=== PATIENT | male | born 1940 | race Caucasian/White ===

== ENCOUNTER 2020-10-24 09:17 | Outpatient (RCR) | payer MEDICARE, SELFPAY | END 2020-10-24 23:59 | LOC: IMMUN 09:17 | PROVIDERS: Referring Provider Family Medicine; Visit Provider Family Medicine | DX: Z23 Encounter for immunization (principal) | CPT/HCPCS: 0011A; 0012A ==

== ENCOUNTER 2022-09-02 16:34 | Emergency (ER) | payer MEDICARE, MEDICAID, SELFPAY ==
[2022-09-02 16:35] VITALS: BP 134/63; PULSE 66; RESP 18; TEMP 36.4; O2SAT 98; BMI 25.1
--- NOTE | 2022-09-02 16:59 | CT_ITS ---
STUDY: CT Abdomen And Pelvis W/ Contrast Injection 09/02/2022 6:05 PM REASON FOR EXAM: Male, 82 years old. Abdominal pain abd pain Individualized dose optimization techniques were used for this CT. COMPARISON: None. TECHNIQUE: CT Abdomen And Pelvis W/ Contrast Injection IV 100mL [id number] FINDINGS: There are atherosclerotic calcifications of visualized coronary arteries. Multiple median sternotomy wires are noted consistent for cardiac surgery. TAVR. Normal liver. Normal gallbladder and extrahepatic biliary system. Normal spleen. Normal pancreas. Normal bilateral adrenal glands. Non obstructive 2 mm right renal parenchymal stones. There are hypodensities in the left kidney. These are consistent for cysts. No follow up required. There are hypodensities in the right kidney. These are consistent for cysts. No follow up required. There is a small hiatal hernia. Small bowel anastomosis noted. Stool throughout the colon. There is non-visualization of the appendix. There are calcifications of the abdominal aorta. This is consistent for atherosclerotic disease. There is NO abdominal aortic aneurysm. Vascular workup can be obtained based on clinical correlation. Normal inferior vena cava. Subcentimeter mesenteric lymph nodes. 31mm calcified mesenteric mass in the mid mesentry. 21 mm calcified mesenteric mass in the right upper quadrant mesentry. 15mm and 10 mm calcified mesenteric mass in the left lower quadrant mesentry. Normal urinary bladder. There is a left-sided inguinal hernia containing adipose tissue. There are diffuse degenerative changes of the visualized lumbar spine. CT/Abdomen/Pelvis W IV Cont ONLY IMPRESSION: (NOT LISTED IN ORDER OF SIGNIFICANCE) Constipation. Multiple calcified mesenteric masses. The differential includes: sclerosing mesenteritis and Mesenteric carcinoid tumor. Non obstructive 1 to 2 mm right renal parenchymal stones. Other findings as above. Electronically Signed: Dawit Chavarria MD at 18:11 EST ,
--- NOTE | 2022-09-02 17:00 | EDS_ITS ---
HPI HPI - GI History of Present Illness Chief Complaint: Abd Pain Informant: patient and spouse/S.O. Abdominal Pain/Flank Pain Onset: Days Context: Gradual Onset Timing: Continuous Quality: Cramping Location: Diffuse Current Severity: Mild Maximum Severity: Mild Worsened by: Nothing Relieved by: Nothing Nausea/Vomiting/Emesis GI Symptom: Negative for Nausea or Vomiting Diarrhea/Melena/Hematochezia GI Symptom: Negative for Diarrhea, Melena or Hematochezia Associated Symptoms Associated Symptoms: Negative for Dysuria, Frequency or Hematuria Narrative Narrative: 82-year-old male history of dementia, Parkinson's disease, diabetes, 5 way bypass secondary coronary disease and prior bowel obstructions. Years ago. Recently has had constipation with limited bowel movements. Was seen at another facility. Given an enema. Recently at the end of July he was placed in a local extended care facility. is concerned he has developed a recurrent bowel obstruction. He has had no fever. Only mild diffuse crampy discomfort. No vomiting. No melena. No dysuria. He is eating and drinking well Prior similar symptoms: Yes Recent Illness/Hospitalization: Yes PFSH PFSH Medical History (Updated 09/02/22 @ 18:[address] Jori Lancaster MD) Anxiety Coronary artery disease Depression Diabetes Hypertension Myocardial infarct Allergy/AdvReac Type Severity Reaction Status Date / Time donepezil [From Aricept] Allergy Other Verified 09/02/22 16:39 lorazepam [From Ativan] Allergy Other Verified 09/02/22 16:39 Surgical History (Updated 09/02/22 @ 17:06 by Moises Durham) Heart valve replaced History of bowel resection Hx of CABG Social History Smoking Status: Never smoker ROS ROS ED ROS Narrative Abdominal discomfort. Constipation. Review of Systems ROS Unobtainable: Denies due to encephalopathy Constitutional Constitutional ED: Denies chills or fever(s) ENT ENT ED: Denies ear pain Cardiovascular Cardiovascular: Denies chest pain Respiratory/Chest Respiratory/Chest: Denies cough or dyspnea Gastrointestinal Gastrointestinal: Reports abdominal pain and constipation; Denies diarrhea, qasim harris, nausea or vomiting Genitourinary Genitourinary ED: Denies dysuria or hematuria Musculoskeletal Musculoskeletal: Denies arthralgias Integumentary Denies abscess Neurologic Neurologic: Denies headache(s) Psychiatric Psychiatric: Denies anxiety Endocrine Endocrinology: Denies polydipsia Hematologic/Lymphatic Hematologic/Lymphatic: Denies easy bleeding Allergic/Immunologic Allergic/Immunologic ED: Denies mouth swelling or tongue swelling EXAM Physical Exam Narrative Exam Narrative: 82-year-old male no acute distress. Vital signs stable afebrile. at bedside. H EENT exam unremarkable. Moist mucous membranes. Neck nontender no lymphadenopathy. Lungs clear. Heart regular rhythm rate about 65 no murmur. Chest wall nontender. Abdomen soft. Minimally distended. Positive bowel sounds. Well-healed midline surgical incision from the past. No hernia or mass. No peritoneal signs. Very mild nonlocalizing tenderness. External exam unremarkable. Palpable femoral pulse. Moving all 4 extremities. Nontender no edema. Neurologically is awake and alert. Const Vital Signs: 09/02/22 16:35 Temperature 97.5 F L Temperature Source Temporal Pulse Rate 66 Respiratory Rate 18 Blood Pressure 134/63 H Blood Pressure Mean 86 Pulse Ox 98 Oxygen Delivery Method Room Air Positive well nourished and well developed; Negative for obese, cachectic, contractures or unkempt General Appearance ED: well developed and NAD; Negative for unkempt, cachectic, contractures or pallor Nutritional Appearance: Negative for cachectic or obese HEENT Reports moist mucous membranes; Denies dry mucous membranes normocephalic and atraumatic; Negative for trauma or tenderness Mouth ED: No dry mucous membranes Mouth: No dry mucous membranes Eyes PERRL and EOMs intact bilaterally General Eye ED: Negative for pale conjunctiva or scleral icterus Neck no lymphadenopathy, supple and no JVD General: Negative for tenderness Carotids: Negative for other Lymph Lymphatic: Negative for other Resp normal respiratory effort and clear to auscultation bilaterally Effort and Inspection: Negative for respiratory distress Auscultation: Negative for rales, rhonchi or wheezes Cardio regular rate, regular rhythm, S1 normal heart sound, S2 normal heart sound and no murmurs Rate: Negative for bradycardia or tachycardic GI no masses; Negative for non-tender or non-distended Inspection: abdominal distention Auscultation: normoactive bowel sounds Palpation: soft and tender; Negative for guarding, rigid, hernia, mass, pulsatile mass or rebound tenderness present Back/Spine no CVA tenderness General Back: Negative for CVA tenderness Cervical Spine: Negative for cervical spine tenderness Thoracic Spine / Upper Back: Negative for thoracic spinal tenderness Lumbar Spine / Lower Back: Negative for lumbar spinal tenderness Coccyx: Negative for other Extremity full ROM General Extremety ED: Negative for edema or tenderness General Extremity: Negative for edema Neuro CN's II-XII intact bilaterally and moves all extremities Sensorium / Orientation: alert and oriented to person Motor Exam: strength 5/5 throughout Psych mental status grossly normal and thought process normal Appearance: Negative for unkempt Attitude: No agitated Mood & Affect: Negative for depressed, anxious or tearful Skin no wounds General Skin Exam: Negative for jaundice or pallor Lesions: no lesions Rashes: no rashes Trauma: Negative for abrasion Nails: Negative for discolored MDM MDM MDM Narrative Medical decision making narrative: 82-year-old male with constipation and abdominal discomfort. Has had a history of bowel obstructions in the past. CAT scan to be obtained to evaluate for abdominal pain and possible obstruction. Clinically unthickened this is constipation. We will get screening labs also urinalysis. He does not need anything for pain. He is not dehydrated. He is not complaining of any nausea. Repeat exam patient doing well at 6:40 PM. Abdomen benign. Discussed test results with patient and his at bedside. He will be discharged back to [place] where he is currently a resident. Treated for constipation. Lab Data Attestation: I reviewed the patient's lab results. Lab results narrative: CBC shows a white count of 5.7. H&H 12.2 and 36. Platelets 177. No old labs are available for comparison at our facility. Electrolytes unremarkable gap at 3. Normal BUN and creatinine. Glucose 223. Liver enzymes unremarkable. CAT scan consistent with constipation. No bowel obstruction. Read by the radiologist and reviewed by me. Labs: Laboratory Results - last 24 hr 09/02/22 09/02/22 17:05 17:05 WBC 5.7 RBC 4.02 L Hgb 12.2 L Hct 36.3 L MCV 90.3 MCH 30.3 MCHC 33.6 RDW Std Deviation 43.5 RDW Coeff of Nisa 13.2 Plt Count 177 MPV 9.4 Immature Gran % (Auto) 0.200 Neut % (Auto) 69.5 Lymph % (Auto) 21.4 Riley % (Auto) 7.0 Eos % (Auto) 1.4 Baso % (Auto) 0.5 Absolute Neuts (auto) 4.0 Absolute Lymphs (auto) 1.22 Nucleated RBC % 0 Sodium 137 Potassium 4.4 Chloride 104 Carbon Dioxide 30.0 Anion Gap 3 L BUN 14 Creatinine 1.07 Estim Creat Clear Calc 56.69 Est GFR (MDRD) Af Amer 85 Est GFR (MDRD) Non-Af 70 BUN/Creatinine Ratio 13.1 Glucose 223 H Calcium 8.3 L Total Bilirubin 0.30 AST 23 ALT 40 Alkaline Phosphatase 59 Total Protein 6.7 Albumin 3.2 Globulin 3.5 Albumin/Globulin Ratio 0.9 Radiography Diagnostic Testing: Clinical Impression(s) from Imaging Studies Abdomen/Pelvis CT 09/02/22 16:59 IMPRESSION: (NOT LISTED IN ORDER OF SIGNIFICANCE) Constipation. Multiple calcified mesenteric masses. The differential includes: sclerosing mesenteritis and Mesenteric carcinoid tumor. Non obstructive 1 to 2 mm right renal parenchymal stones. Other findings as above. Electronically Signed: Dawit Chavarria MD at 18:11 EST Reading Location ID and State: [facility] / [place] , Service support , Discharge Plan Triage Chief Complaint: Abd Pain ED Provider: Jori Lancaster Dx/Rx/DC Orders Clinical Impression: Acute constipation, Abdominal pain, History of diabetes mellitus Instructions: ED Constipation (Adult) Primary Care Provider: Marti Peck Referrals: Marti Peck, [Primary Care Provider] - 3-5 Days if not improving Activity Restrictions/Additional Instructions: MiraLAX for constipation. Plenty of fluids and fiber. Follow-up if not improving. His labs and CAT scan today were unremarkable other than the constipation. Disposition Disposition: Home, Self Care
[2022-09-02 17:12] LABS: Absolute Lymphocyte Count 1.22 X10^3/uL (0.83-4.51); Basophil# 0.03 X10^3/uL; Basophil% 0.5 % (0-1); Eosinophil# 0.08 X10^3/uL; Eosinophils% 1.4 % (0-5); Hematocrit 36.3 % (40-54); Hemoglobin 12.2 g/dL (13.0-16.5); Lymphocyte # 1.22 X10^3/ul (0.83-4.51); Lymphocyte % 21.4 % (19-41); Mean Corp Hgb Conc 33.6 g/dL (32-36); Mean Corpuscular Hgb 30.3 pg (27.0-32.0); Mean Corpuscular Volume 90.3 fL (80-94); Mean Platelet Vol. 9.4 fl (6.2-12.0); NRBC Flagged by Analyzer 0 % (0-5); Neutrophil # 3.95 X10^3/uL (2.7-7.7); Neutrophil % 69.5 % (47-70); Platelet Count 177 K/mm3 (150-450); RBC Distribution Width CV 13.2 % (11.6-14.6); RBC Distribution Width SD 43.5 fl (35.1-43.9); Red Blood Count 4.02 M/mm3 (4.6-6.2); White Blood Count 5.7 K/mm3 (4.4-11.0)
[2022-09-02 17:35] LABS: ALB/GLOB Ratio 0.9 RATIO (0.9-2.4); AST(SGOT) 23 U/L (15-37); Alanine Aminotransfer ALT/SGPT 40 U/L (16-61); Albumin, Serum 3.2 g/dL (3.2-5.0); Alkaline Phosphatase 59 U/L (45-117); Anion Gap 3 (5-15); BUN 14 mg/dL (7-18); BUN/Creat Ratio 13.1 RATIO (10-20); Calcium,Total 8.3 mg/dL (8.5-10.1); Chloride 104 mmol/L (98-107); Creatinine, Serum 1.07 mg/dL (0.70-1.30); EST Glomerular Filtration Rate 70 mL/min (>60); Est Glom Filt Rate - Afr Amer 85 mL/min (>60); Estimated Creatinine Clearance 56.69 ml/min; Globulin 3.5 g/dL (2.2-4.2); Glucose 223 mg/dL (74-106); Potassium 4.4 mmol/L (3.5-5.1); Protein, Total 6.7 g/dL (6.4-8.2); Sodium Level 137 mmol/L (136-145)
[2022-09-02 18:27] LABS: Bacteria 0 SEEN /hpf (None Seen); Mucous, Urine 0 SEEN /hpf (<or=2+); Red Blood Cells-Urine 0 SEEN /hpf (0-5); Squamous Epithelial Cells - UA 0 SEEN /hpf (0-5); White Blood Cells 0 SEEN /hpf (0-5)
[2022-09-02 18:37] LABS: Color, Urine Yellow (Yellow); Glucose, Dipstick Normal (Normal); Ketone-Dipstick Negative (Negative); Leukocyte Esterase-Dipstick Negative /ul (Negative); Nitrite-Dipstick Negative (Negative); Occult Blood-Urine Negative /ul (Negative); Protein-Dipstick Negative (Negative); Urine Bilirubin Dipstick Negative (Negative); Urine Clarity Clear (Clear); Urine Urobilinogen Normal (Normal); Urine pH 6.5 (5.0 - 8.0)
[2022-09-02] MEDS: Electrolyte Solution/Peg's 4000 ML 2000 ML PO (19:16)
== END 2022-09-02 19:16 | disposition home or self-care (01) ==
PROVIDERS: Emergency Provider Emergency Medicine; Visit Provider Emergency Medicine
DX: K59.00 Constipation, unspecified (principal); R10.9 Unspecified abdominal pain; I25.10 Atherosclerotic heart disease of native coronary artery without angina pectoris; I25.2 Old myocardial infarction; Z95.1 Presence of aortocoronary bypass graft
CPT/HCPCS: 74177; 80053; 81001; 85025; 99282; Q9967; A4216

== ENCOUNTER 2022-09-03 11:16 | Emergency (ER) | payer MEDICARE, MEDICAID, SELFPAY ==
[2022-09-03 11:17] VITALS: BP 144/66; PULSE 70; RESP 16; TEMP 36.3; O2SAT 97; BMI 25.1
[2022-09-03] MEDS: Lidocaine Jelly 2% 20 ML Syringe (URO-JET) 1 APPLIC TOPICAL (11:56)
--- NOTE | 2022-09-03 12:04 | ED.VIS.GI ---
HPI HPI - GI History of Present Illness Chief Complaint: Constipation Detail of Chief Complaint: Rectal pain, obstipation with seepage per Informant: spouse/S.O. Abdominal Pain/Flank Pain Onset: Days Context: Gradual Onset Timing: Continuous Quality: Aching and Cramping Location: - (Pelvic/rectal area) Current Severity: Mild Maximum Severity: Moderate Worsened by: - (Attempt to have a bowel movement) Relieved by: Nothing Nausea/Vomiting/Emesis GI Symptom: Negative for Nausea or Vomiting Diarrhea/Melena/Hematochezia GI Symptom: Positive for - (Patient for a week); Negative for Diarrhea, Melena or Hematochezia Associated Symptoms Associated Symptoms: Negative for Dysuria, Frequency, Hematuria or Urgency Narrative Narrative: Patient is an elderly male with history of dementia, Parkinson's disease and coronary disease who presents with diarrhea. Apparently attempt was made to disimpact last evening and was unsuccessful because patient was unable to tolerate procedure. states this has been an issue for some time. She states she does not recall the results of the chest x-ray. We will discuss these since there is concern for carcinoid tumor. is the primary informant. He complains of vague abdominal pain with distention and difficulty having bowel movement. There is been no documented fever. There is been no vomiting. There is no urologic symptoms. Prior similar symptoms: Yes Recent Illness/Hospitalization: Yes PFSH [facility] Medical History Anxiety Coronary artery disease Depression Diabetes Hypertension Myocardial infarct Allergy/AdvReac Type Severity Reaction Status Date / Time donepezil [From Aricept] Allergy Other Verified 09/03/22 11:20 lorazepam [From Ativan] Allergy Other Verified 09/03/22 11:20 Surgical History Heart valve replaced History of bowel resection Hx of CABG Social History (Updated 09/03/22 @ 12:[address] Jalen Patel MD) household members: spouse Smoking Status: Never smoker substance use type: does not use ROS ROS ED Review of Systems ROS Unobtainable: due to mental status and other Details: Pertinence documented in the HPI narrative. Patient's not a good informant due to dementia. EXAM Physical Exam Const Vital Signs: 09/03/22 11:17 Temperature 97.4 F L Temperature Source Temporal Pulse Rate 70 Respiratory Rate 16 Blood Pressure 144/66 H Blood Pressure Mean 92 Pulse Ox 97 Oxygen Delivery Method Room Air Positive well nourished and well developed General Appearance ED: well developed; Negative for NAD HEENT Reports moist mucous membranes HEENT Narrative: Masked face appearance. normocephalic and atraumatic Eyes PERRL and EOMs intact bilaterally General Eye ED: Negative for pale conjunctiva or scleral icterus Neck no lymphadenopathy, supple and no JVD Resp normal respiratory effort and clear to auscultation bilaterally Effort and Inspection: respiratory distress Cardio regular rate, regular rhythm, S1 normal heart sound, S2 normal heart sound and no murmurs GI non-tender and no masses; Negative for non-distended GI Narrative: Rectal exam reveals large hard stool. Stool is brown. There is no fissures or fistulas noted. Inspection: abdominal distention Auscultation: hypoactive bowel sounds Palpation: soft Back/Spine no CVA tenderness Thoracic Spine / Upper Back: Negative for thoracic spinal tenderness Lumbar Spine / Lower Back: Negative for lumbar spinal tenderness Extremity full ROM General Extremety ED: Negative for edema or tenderness General Extremity: Negative for edema Neuro CN's II-XII intact bilaterally, moves all extremities and No gait normal Neuro Narrative: Gait is shuffled consistent with Parkinson's disease Sensorium / Orientation: Negative for alert Psych Psych Narrative: Mentation is slow. Thought processes appropriate. He has a depressed affect. Suspect this is due to his Parkinson's disease. Skin no wounds General Skin Exam: Negative for jaundice MDM MDM MDM Narrative Medical decision making narrative: Patient has a fecal impaction. Will discuss x-ray results with . Will discuss CODE STATUS. Glydo Urojet was instilled into the rectum. After 30 minutes we will digitally disimpact. Patient was digitally disimpacted. There was significant mount of hard stool that was removed. Patient complained of discomfort during the procedure. was informed of radiologic results and revealed multiple calcified mesenteric masses and included differential of sclerosing Mezey enteritis and mesenteric carcinoid tumor. He does have a GI specialist. Patient has mild anemia on CBC. Alkaline phosphatase, AST ALT and calcium are unremarkable. Radiography Diagnostic Testing: IMPRESSION:? (NOT LISTED IN ORDER OF SIGNIFICANCE) Constipation. ? Multiple calcified mesenteric masses. The differential? includes: sclerosing mesenteritis and Mesenteric carcinoid tumor. ? Non obstructive 1 to 2 mm right renal parenchymal stones. Other findings as above. ? Electronically Signed: Dawit Chavarria MD at 18:11 EST , X-ray was obtained last evening. Procedures Other Procedures Procedure(s): Digital disimpaction by physician Discharge Plan Triage Chief Complaint: Constipation ED Provider: Norbert Patelo Dx/Rx/DC Orders Clinical Impression: Fecal impaction in rectum, Abdominal pain, Calcified mesenteric mass Instructions: High Fiber Diet Dc, ED Fecal Impaction, Treated Primary Care Provider: Marti Peck Referrals: Marti Peck DO [Primary Care Provider] - Andrade Beck MD [Non-Staff] - 5-7 Days Activity Restrictions/Additional Instructions: 1. Recommend full 12 ounce glass of water with each dose of MiraLAX or Metamucil. 2. Should administer MiraLAX or Metamucil 3 times a day for the next week then decrease to twice a day. Disposition Disposition: Home, Self Care
--- NOTE | 2022-09-03 12:29 | ED.RN ---
dr pierce notified [facility]
[2022-09-03 13:46] VITALS: BP 138/81; PULSE 76; RESP 16; O2SAT 99
--- NOTE | 2022-09-03 13:47 | CCN.REFER ---
called federico to give update and dr pierce recommendations. nurse at care center verbalized understanding and to update pt primary care dr holguin at this home
== END 2022-09-03 13:48 | disposition home or self-care (01) ==
PROVIDERS: Emergency Provider Emergency Medicine; Visit Provider Emergency Medicine
DX: K56.41 Fecal impaction (principal); R19.09 Other intra-abdominal and pelvic swelling, mass and lump; R10.9 Unspecified abdominal pain; I25.10 Atherosclerotic heart disease of native coronary artery without angina pectoris; Z95.1 Presence of aortocoronary bypass graft
CPT/HCPCS: 99282

== ENCOUNTER → 2022-09-14 | Outpatient (REF) | payer MEDICARE, MEDICAID, SELFPAY ==
[2022-09-14 08:22] LABS: Hemoglobin A1c 6.7 % (3.8-5.6)
[2022-09-14 08:24] LABS: Anion Gap 4 (5-15); BUN 14 mg/dL (7-18); BUN/Creat Ratio 14.3 RATIO (10-20); Calcium,Total 8.9 mg/dL (8.5-10.1); Chloride 105 mmol/L (98-107); Creatinine, Serum 0.98 mg/dL (0.70-1.30); EST Glomerular Filtration Rate 78 mL/min (>60); Est Glom Filt Rate - Afr Amer 94 mL/min (>60); Glucose 40 mg/dL (74-106); Potassium 3.8 mmol/L (3.5-5.1); Sodium Level 142 mmol/L (136-145)
== END ==
LOC: OLS.BROOKB 05:00
PROVIDERS: Visit Provider Family Medicine
DX: E11.9 Type 2 diabetes mellitus without complications (principal)
CPT/HCPCS: 36415; 80048; 83036

== ENCOUNTER 2022-10-08 16:12 | Emergency (ER) | payer MEDICARE, MEDICAID, SELFPAY ==
[2022-10-08 16:14] VITALS: BP 102/90; PULSE 72; RESP 16; TEMP 36.1; O2SAT 99; BMI 26.2
--- NOTE | 2022-10-08 16:37 | EKG12_ITS ---
Test Reason : Blood Pressure : / mmHG Vent. Rate : 075 BPM Atrial Rate : 075 BPM P-R Int : 198 ms QRS Dur : 160 ms QT Int : 432 ms P-R-T Axes : 046 -66 076 degrees QTc Int : 482 ms Sinus rhythm with occasional Premature ventricular complexes Left axis deviation Left bundle branch block Abnormal ECG Confirmed by LUZMA JC, ALYSON ([id number]), slot editor DAMARIS NELSON ([id number]) on 10/09/2022 10:18:09 AM Referred By: Confirmed By:ALYSON SEGAL MD
--- NOTE | 2022-10-08 16:37 | EX.ED.DYSGE1 ---
HPI History of Present Illness Chief Complaint: GI Bleed Narrative Narrative: Patient presents with vomiting x1, per ECF there may have been some red tinge to it. Patient also was slightly tachycardic at the ECF, his blood sugars were also in the 60s however they came up into the 100s quite well after food. Patient does have some dementia however when I talked to him he has no issues he tells me he has no pain I discussed with his who tells me he is at baseline. No GI bleed although he recently had fecal impaction and was disimpacted in the ED. PFSH PFSH Medical History Anxiety Coronary artery disease Depression Diabetes Hypertension Myocardial infarct Allergy/AdvReac Type Severity Reaction Status Date / Time donepezil [From Aricept] Allergy Other Verified 09/03/22 11:20 lorazepam [From Ativan] Allergy Other Verified 09/03/22 11:20 Surgical History Heart valve replaced History of bowel resection Hx of CABG Social History household members: spouse Smoking Status: Never smoker substance use type: does not use ROS ROS ED Review of Systems ROS Unobtainable: due to mental condition EXAM Physical Exam Narrative Exam Narrative: Physical exam General: Pleasantly demented he does not appear in any distress. Head: Normocephalic, Atraumatic Eyes: Conjunctiva not pale ENT: Moist mucous membranes Neck: Supple, Nontender, No lymphadenopathy Cardiovascular: Regular rate, Regular rhythm Respiratory: No distress, CTA bilaterally Abdomen: Soft, Nontender, Nondistended Rectal: Light brown stool, no impaction. Back: Nontender, Normal Inspection. Negative for: CVA tenderness Extremities: Nontender, No edema Skin: Normal color, No rash Neurological: Alert to person, he recognizes his , Normal Strength, Normal Sensation Const Vital Signs: 10/08/22 16:14 Temperature 97 F L Temperature Source Temporal Pulse Rate 72 Respiratory Rate 16 Blood Pressure 102/90 H Blood Pressure Mean 94 Pulse Ox 99 Oxygen Delivery Method Room Air MDM MDM MDM Narrative Medical decision making narrative: A. Problems addressed Possible GI bleed, history of hypoglycemia, weakness, nausea vomiting, parkinsonism B. Amount and/or complexity of the data 1. I discussed with in the room, CBC CMP and urine interpreted by me. 2. Independent interpretation of test KUB interpreted by me as slight constipation but normal bowel gas pattern. 3. Discussion of management with external healthcare provider C. Risk of complications and/or morbidity Patient is currently not hypoglycemic. He appears well. He is back to baseline per family. We talked about glycemic control as well as him eating. I also had a long discussion with the patient and about the possible GI bleed, he has light brown stool but it does test positive for blood on the guaiac. At this time would not want him to go through any kind of endoscopy. His hemoglobin is normal he does not have any vital abnormalities. I believe it is reasonable to watch and if anything happens he can return seems quite competent and he is being watched in the ECF. As far as the nausea he has been nausea free and has not vomited in the ED and he appears well. He did receive antiemetics. We also talked about his constipation he is currently on stool softeners he is to continue these. I believe he can be safely discharged home. Lab Data Labs: Laboratory Results - last 24 hr 10/08/22 10/08/22 10/08/22 16:45 16:45 16:45 WBC 8.8 RBC 4.61 Hgb 13.5 Hct 40.9 MCV 88.7 MCH 29.3 MCHC 33.0 RDW Std Deviation 41.2 RDW Coeff of Nisa 12.7 Plt Count 180 MPV 10.2 Immature Gran % (Auto) 0.500 Neut % (Auto) 80.7 H Lymph % (Auto) 12.4 L [place] % (Auto) 5.7 Eos % (Auto) 0.2 Baso % (Auto) 0.5 Absolute Neuts (auto) 7.1 Absolute Lymphs (auto) 1.09 Nucleated RBC % 0 Sodium 140 Potassium 3.5 Chloride 105 Carbon Dioxide 28.0 Anion Gap 7 BUN 16 Creatinine 0.97 Estim Creat Clear Calc 62.53 Est GFR (MDRD) Af Amer 95 Est GFR (MDRD) Non-Af 78 BUN/Creatinine Ratio 16.4 Glucose 127 H Calcium 8.8 Total Bilirubin 0.50 AST 38 H ALT 47 Alkaline Phosphatase 57 Total Protein 7.1 Albumin 3.6 Globulin 3.5 Albumin/Globulin Ratio 1.0 Urine Color Yellow Urine Clarity Clear Urine pH 8.0 Ur Specific [place] 1.010 Urine Protein Negative Urine Glucose (UA) Normal Urine Ketones Negative Urine Occult Blood Negative Urine Nitrite Negative Urine Bilirubin Negative Urine Urobilinogen Normal Ur Leukocyte Esterase Negative Urine RBC 0 SEEN Urine WBC 0 SEEN Ur Squamous Epith Cells 0 SEEN Urine Bacteria 0 SEEN Urine Mucus 0 SEEN Radiography Diagnostic Testing: KUB read by me is unremarkable EKG Initial EKG: Comments: Sinus rhythm with a rate of 75. Left bundle branch block. Left axis deviation. No obvious ischemic changes. Interpreted by emergency doctor. Discharge Plan Triage Chief Complaint: GI Bleed ED Provider: John Bowser Dx/Rx/DC Orders Clinical Impression: Constipation, Hypoglycemia, Weakness, Acute GI bleeding Instructions: Blood Sugar Check Steps Primary Care Provider: Sofía Cross Referrals: Sofía Cross MD [Primary Care Provider] - 3-5 Days Disposition Disposition: Home, Self Care
[2022-10-08] MEDS: Ondansetron 4 MG/2 ML Vial IV (16:45)
[2022-10-08 16:52] LABS: Bacteria 0 SEEN /hpf (None Seen); Mucous, Urine 0 SEEN /hpf (<or=2+); Red Blood Cells-Urine 0 SEEN /hpf (0-5); Squamous Epithelial Cells - UA 0 SEEN /hpf (0-5); White Blood Cells 0 SEEN /hpf (0-5)
[2022-10-08 16:55] LABS: Color, Urine Yellow (Yellow); Glucose, Dipstick Normal (Normal); Ketone-Dipstick Negative (Negative); Leukocyte Esterase-Dipstick Negative /ul (Negative); Nitrite-Dipstick Negative (Negative); Occult Blood-Urine Negative /ul (Negative); Protein-Dipstick Negative (Negative); Urine Bilirubin Dipstick Negative (Negative); Urine Clarity Clear (Clear); Urine Urobilinogen Normal (Normal)
[2022-10-08 17:02] LABS: Absolute Lymphocyte Count 1.09 X10^3/uL (0.83-4.51); Absolute Neutrophil Count 7.1 X10^3/uL (2.0-7.7); Basophil# 0.04 X10^3/uL; Basophil% 0.5 % (0-1); Eosinophil# 0.02 X10^3/uL; Eosinophils% 0.2 % (0-5); Hematocrit 40.9 % (40-54); Hemoglobin 13.5 g/dL (13.0-16.5); Lymphocyte # 1.09 X10^3/ul (0.83-4.51); Lymphocyte % 12.4 % (19-41); Mean Corpuscular Hgb 29.3 pg (27.0-32.0); Mean Corpuscular Volume 88.7 fL (80-94); Mean Platelet Vol. 10.2 fl (6.2-12.0); Monocyte% 5.7 % (0-10); NRBC Flagged by Analyzer 0 % (0-5); Neutrophil # 7.12 X10^3/uL (2.7-7.7); Neutrophil % 80.7 % (47-70); Platelet Count 180 K/mm3 (150-450); RBC Distribution Width CV 12.7 % (11.6-14.6); RBC Distribution Width SD 41.2 fl (35.1-43.9); Red Blood Count 4.61 M/mm3 (4.6-6.2); White Blood Count 8.8 K/mm3 (4.4-11.0)
--- NOTE | 2022-10-08 17:06 | NURSING ---
NO OLD EKGS
[2022-10-08 17:08] LABS: AST(SGOT) 38 U/L (15-37); Alanine Aminotransfer ALT/SGPT 47 U/L (16-61); Albumin, Serum 3.6 g/dL (3.2-5.0); Alkaline Phosphatase 57 U/L (45-117); Anion Gap 7 (5-15); BUN 16 mg/dL (7-18); BUN/Creat Ratio 16.4 RATIO (10-20); Calcium,Total 8.8 mg/dL (8.5-10.1); Chloride 105 mmol/L (98-107); Creatinine, Serum 0.97 mg/dL (0.70-1.30); EST Glomerular Filtration Rate 78 mL/min (>60); Est Glom Filt Rate - Afr Amer 95 mL/min (>60); Estimated Creatinine Clearance 62.53 ml/min; Globulin 3.5 g/dL (2.2-4.2); Glucose 127 mg/dL (74-106); Potassium 3.5 mmol/L (3.5-5.1); Protein, Total 7.1 g/dL (6.4-8.2); Sodium Level 140 mmol/L (136-145)
--- NOTE | 2022-10-08 17:25 | RAD_ITS ---
EXAM: XR ABDOMEN, 1 VIEW CLINICAL INDICATION: consipation TECHNIQUE: Frontal supine view of the abdomen/pelvis. This report was created using [employer] report generation technology. COMPARISON: None. FINDINGS: LOWER THORAX: No acute pathology. INTRAPERITONEAL SPACE: There are several calcifications in the right upper abdomen which were seen on a previous CT scan of the abdomen and pelvis and appear to represent mesenteric calcifications. GASTROINTESTINAL TRACT: Unremarkable. Non-obstructive. No bowel or stomach distention. ORGANS: Unremarkable as visualized. No organomegaly. No abnormal calcifications. BONES/JOINTS: See above. SOFT TISSUES: No acute pathology. RAD/Abdomen Single View IMPRESSION: No acute findings. Electronically Signed: Sony Hodges MD at 17:57 EST ,
== END 2022-10-08 18:11 | disposition home or self-care (01) ==
PROVIDERS: Emergency Provider Emergency Medicine; PCP Family Medicine; Visit Provider Emergency Medicine
DX: K59.00 Constipation, unspecified (principal); F03.90 Unspecified dementia, unspecified severity, without behavioral disturbance, psychotic disturbance, mood disturbance, and anxiety; E16.2 Hypoglycemia, unspecified; R53.1 Weakness; K92.2 Gastrointestinal hemorrhage, unspecified; I25.10 Atherosclerotic heart disease of native coronary artery without angina pectoris; I25.2 Old myocardial infarction; Z95.1 Presence of aortocoronary bypass graft
CPT/HCPCS: 74018; 80053; 81001; 82274; 85025; 93005; 96374; 99283; A4216; J2405

== ENCOUNTER → 2022-11-22 | Outpatient (REF) | payer MEDICARE, MEDICAID, SELFPAY ==
[2022-11-23 10:27] LABS: Bacteria 0 SEEN /hpf (None Seen); Mucous, Urine 0 SEEN /hpf (<or=2+); Red Blood Cells-Urine 0 SEEN /hpf (0-5); Squamous Epithelial Cells - UA 0 SEEN /hpf (0-5); White Blood Cells 0 SEEN /hpf (0-5)
[2022-11-23 10:46] LABS: Color, Urine Yellow (Yellow); Glucose, Dipstick Normal (Normal); Ketone-Dipstick Negative (Negative); Leukocyte Esterase-Dipstick Negative /ul (Negative); Nitrite-Dipstick Negative (Negative); Occult Blood-Urine Negative /ul (Negative); Protein-Dipstick 15 mg/dl (Negative); Urine Bilirubin Dipstick Negative (Negative); Urine Clarity Clear (Clear); Urine Urobilinogen Normal (Normal)
== END ==
LOC: OLS.BROOKB 10:26
PROVIDERS: PCP Family Medicine
DX: R41.82 Altered mental status, unspecified (principal)
CPT/HCPCS: 81001; 87086

== ENCOUNTER → 2023-01-12 | Outpatient (REF) | payer MEDICARE, MEDICAID, SELFPAY ==
[2023-01-12 11:14] LABS: Absolute Lymphocyte Count 1.14 X10^3/uL (0.83-4.51); Absolute Neutrophil Count 4.4 X10^3/uL (2.0-7.7); Basophil# 0.03 X10^3/uL; Basophil% 0.5 % (0-1); Eosinophil# 0.09 X10^3/uL; Eosinophils% 1.5 % (0-5); Hematocrit 35.6 % (40-54); Lymphocyte # 1.14 X10^3/ul (0.83-4.51); Lymphocyte % 18.6 % (19-41); Mean Corp Hgb Conc 33.7 g/dL (32-36); Mean Corpuscular Hgb 30.4 pg (27.0-32.0); Mean Corpuscular Volume 90.1 fL (80-94); Mean Platelet Vol. 10.5 fl (6.2-12.0); Monocyte# 0.43 X10^3/uL; NRBC Flagged by Analyzer 0 % (0-5); Neutrophil # 4.43 X10^3/uL (2.7-7.7); Neutrophil % 72.1 % (47-70); Platelet Count 157 K/mm3 (150-450); RBC Distribution Width CV 12.5 % (11.6-14.6); RBC Distribution Width SD 41.3 fl (35.1-43.9); Red Blood Count 3.95 M/mm3 (4.6-6.2); White Blood Count 6.1 K/mm3 (4.4-11.0)
[2023-01-12 11:33] LABS: AST(SGOT) 30 U/L (15-37); Alanine Aminotransfer ALT/SGPT 44 U/L (16-61); Albumin, Serum 3.3 g/dL (3.2-5.0); Alkaline Phosphatase 61 U/L (45-117); Anion Gap 5 (5-15); BUN 19 mg/dL (7-18); BUN/Creat Ratio 17.3 RATIO (10-20); Calcium,Total 8.2 mg/dL (8.5-10.1); Chloride 106 mmol/L (98-107); EST Glomerular Filtration Rate 68 mL/min (>60); Est Glom Filt Rate - Afr Amer 82 mL/min (>60); Globulin 3.4 g/dL (2.2-4.2); Glucose 229 mg/dL (74-106); Potassium 4.6 mmol/L (3.5-5.1); Protein, Total 6.7 g/dL (6.4-8.2); Sodium Level 138 mmol/L (136-145); Thyroid Stim Hormone (TSH) 2.24 uIU/mL (0.358-3.74)
== END ==
LOC: OLS.BROOKB 10:35
PROVIDERS: PCP Family Medicine; Visit Provider Family Medicine
DX: I10 Essential (primary) hypertension (principal); E03.9 Hypothyroidism, unspecified
CPT/HCPCS: 36415; 80053; 84443; 85025

== ENCOUNTER 2023-01-20 18:41 | Emergency (ER) | payer MEDICARE, MEDICAID, SELFPAY ==
[2023-01-20 18:43] VITALS: BP 145/73; PULSE 72; RESP 18; TEMP 36.4; O2SAT 98
[2023-01-20 18:55] VITALS: PULSE 72; RESP 16; O2SAT 95; BMI 26.7
--- NOTE | 2023-01-20 19:17 | EDS_ITS ---
HPI <ANGEL Goyal - Last Filed: 01/20/23 20:42> History of Present Illness Chief Complaint: General Illness Narrative Narrative: 82-year-old male with PMH of CABG, valve replacement, DM2, Lewy body dementia presents from memory care unit after nursing staff there was concerned about his vital signs. The says the nurse called her and said his oxygen and heart rate were spiking and then dropping and spiking again. During this time patient said he did not feel well. Now he has no symptoms. According to the he has been eating and drinking well this week. No cough or upper respiratory symptoms, having normal bladder and bowel movements. PFSH <ANGEL Goyal - Last Filed: 01/20/23 20:42> [facility] Medical History Anxiety Coronary artery disease Depression Diabetes Hypertension Myocardial infarct Home Medications alprazolam 0.5 mg tablet 0.5 mg PO TID 01/20/23 [History Last Taken Unknown] aspirin 81 mg capsule 81 mg PO DAILY 01/20/23 [History Last Taken Unknown] benazepril 10 mg tablet 10 mg PO DAILY 01/20/23 [History Last Taken Unknown] bisacodyl 5 mg tablet 5 mg PO QHS 01/20/23 [History Last Taken Unknown] casanthranol-docusate sodium 30 mg-100 mg capsule 1 cap PO DAILY 01/20/23 [History Last Taken Unknown] dulaglutide 0.75 mg/0.5 mL subcutaneous pen injector (Trulicity) 0.75 mg subcut QWEEK 01/20/23 [History Last Taken Unknown] duloxetine 30 mg capsule,delayed release 60 mg PO BID 01/20/23 [History Last Taken Unknown] furosemide 40 mg tablet 40 mg PO DAILY 01/20/23 [History Last Taken Unknown] glimepiride 4 mg tablet 4 mg PO DAILY 01/20/23 [History Last Taken Unknown] hydroxyzine pamoate 25 mg capsule 25 mg PO PRN PRN Anxiety 01/20/23 [History Last Taken Unknown] insulin glargine 100 unit/mL (3 mL) subcutaneous pen (Lantus Solostar U-100 Insulin) 20 unit subcut QHS 01/20/23 [History Last Taken Unknown] magnesium 500 mg tablet 15 mg PO QHS 01/20/23 [History Last Taken Unknown] melatonin 10 mg tablet 10 mg PO QHS 01/20/23 [History Last Taken Unknown] memantine 10 mg tablet 10 mg PO BID 01/20/23 [History Last Taken Unknown] metoprolol succinate 25 mg tablet,extended release 24 hr 25 mg PO DAILY 01/20/23 [History Last Taken Unknown] multivitamin 1 tab PO DAILY 01/20/23 [History Last Taken Unknown] olanzapine 2.5 mg tablet 2.5 mg PO QHS 01/20/23 [History Last Taken Unknown] omeprazole 20 mg capsule,delayed release 20 mg PO DAILY 01/20/23 [History Last Taken Unknown] polyethylene glycol 3350 17 gram oral powder packet 17 g PO BID 01/20/23 [History Last Taken Unknown] quetiapine 50 mg tablet 50 mg PO BID 01/20/23 [History Last Taken Unknown] rosuvastatin 20 mg tablet 20 mg PO QHS 01/20/23 [History Last Taken Unknown] trazodone 50 mg tablet 50 mg PO QHS 01/20/23 [History Last Taken Unknown] Allergy/AdvReac Type Severity Reaction Status Date / Time donepezil [From Aricept] Allergy Other Verified 01/20/23 18:45 lorazepam [From Ativan] Allergy Other Verified 01/20/23 18:45 Surgical History Heart valve replaced History of bowel resection Hx of CABG Social History household members: spouse Smoking Status: Never smoker substance use type: does not use ROS <ANGEL Goyal - Last Filed: 01/20/23 20:42> ROS ED ROS Narrative Constitutional: Negative for fever, chills, malaise. CVS: Negative for palpitations, chest pain, syncope. Respiratory: Negative for shortness of breath, cough. GI: Negative for abdominal pain, nausea, vomiting, diarrhea, constipation, melena, hematochezia. : Negative for dysuria. Neuro: Negative for headache, motor/sensory dysfunction. EXAM <ANGEL oGyal - Last Filed: 01/20/23 20:42> Physical Exam Narrative Exam Narrative: CONST: Patient sitting in no acute distress. EYES: Normal inspection. NECK: Normal inspection. RESP: No respiratory distress, CTAB. CVS: Regular rate and rhythm, no murmur, no gallop. ABD: Soft and nontender, no guarding or rebound, nondistended. SKIN: Color normal, no rash, warm, dry, intact. EXTREMITIES: Normal appearance, no pedal edema. NEURO: Alert to self and place. Knew his age was in the 80s. Does not know the year. Moving all extremities, face symmetric. PSYCH: Normal affect. Const Vital Signs: 01/20/23 18:43 01/20/23 18:55 01/20/23 18:55 Temperature 97.5 F L Temperature Source Temporal Pulse Rate 72 72 Respiratory Rate 18 16 Respiratory Pattern Normal Blood Pressure 145/73 H Blood Pressure Mean 97 Pulse Ox 98 95 Oxygen Delivery Method Room Air Room Air <Dr. Con Xavier DO - Last Filed: 01/20/23 20:08> Physical Exam Const Vital Signs: 01/20/23 18:43 01/20/23 18:55 01/20/23 18:55 Temperature 97.5 F L Temperature Source Temporal Pulse Rate 72 72 Respiratory Rate 18 16 Respiratory Pattern Normal Blood Pressure 145/73 H Blood Pressure Mean 97 Pulse Ox 98 95 Oxygen Delivery Method Room Air Room Air MDM <ANGEL Goyal - Last Filed: 01/20/23 20:42> MDM MDM Narrative Medical decision making narrative: History gathered from: Patient and patient was brought in by his after reported abnormal vital signs at his memory care facility. Here he is awake and alert and at neurological baseline. Vital signs are all within normal limits. His exam is benign. Screening labs will be done and if negative I feel he can be discharged back to his facility. CBC within normal limits. BMP with exception of glucose 180 is normal. He does have diabetes. UA negative. EKG shows no acute changes and troponin is 8. Vital signs have remained normal the entirety of his stay and he was discharged and is driving him back to [facility] care facility. Differential: Underlying infection, electrolyte abnormality, cardiac process I have personally performed a face to face assessment of the patient and have reviewed the JAZMÍN Note. I performed a substantive portion of the visit including all aspects of the following. My owens findings include: History is [patient presents to the emergency department from memory unit at request of nursing staff there. was advised that patient was having episodes of fast heart rate and low oxygen levels at times. was told that he was shaky. Patient has no recollection of this. He tells me currently he feels great. He denies any chest pain or shortness of breath. He denies abdominal pain. He has not had recent illness. Does have a prior history of CABG and believes he has had a mitral valve replacement. Patient not currently anticoagulated.] Exam is [HEENT-PERRLA, EOMI. Cranial nerves II through XII grossly intact. TMs clear. Mucous membranes moist. No adenopathy. Cardiovascular-regular rate and rhythm without murmur or ectopy Lungs-clear to auscultation, chest wall stable without crepitus or subcu emphysema Abdomen-normoactive bowel sounds, soft, nontender, no rebound or rigidity, no peritoneal signs. Extremities-intact ?4, normal range of motion, normal pulses, atraumatic] Medical Decison Making [patient clinically looks well. Heart rates been in the 70s and 80s. It is unclear why nursing staff felt he needed to be evaluated as his vital signs of been stable in the emergency department. We will obtain basic labs as well as EKG which showed a sinus rhythm with left bundle branch block and occasional PVCs. Patient CBC with differential was normal. Rosita mistries unremarkable. Troponin was normal. Urinalysis ordered and pending. As long as his urinalysis is unremarkable and patient feels well I feel he can be discharged back to the custodial.] Other additions or changes: [None] Lab Data Attestation: I reviewed the patient's lab results. Labs: Laboratory Results - last 24 hr 01/20/23 01/20/23 01/20/23 18:54 18:54 19:38 WBC 5.6 RBC 4.54 L Hgb 13.6 Hct 40.3 MCV 88.8 MCH 30.0 MCHC 33.7 RDW Std Deviation 40.7 RDW Coeff of Nisa 12.5 Plt Count 203 MPV 9.8 Immature Gran % (Auto) 0.400 Neut % (Auto) 82.4 H Lymph % (Auto) 12.1 L Scott % (Auto) 4.1 Eos % (Auto) 0.5 Baso % (Auto) 0.5 Absolute Neuts (auto) 4.6 Absolute Lymphs (auto) 0.68 L Nucleated RBC % 0 Sodium 136 Potassium 4.2 Chloride 102 Carbon Dioxide 30.0 Anion Gap 4 L BUN 17 Creatinine 1.10 Estim Creat Clear Calc 55.14 Est GFR (MDRD) Af Amer 82 Est GFR (MDRD) Non-Af 68 BUN/Creatinine Ratio 15.5 Glucose 180 H Calcium 9.2 Troponin I High Sens 8 Urine Color Yellow Urine Clarity Clear Urine pH 8.0 Ur Specific [place] 1.010 Urine Protein 15 H Urine Glucose (UA) Normal Urine Ketones Negative Urine Occult Blood Negative Urine Nitrite Negative Urine Bilirubin Negative Urine Urobilinogen Normal Ur Leukocyte Esterase 25 H Urine RBC 0-5 SEEN Urine WBC 0-5 SEEN Ur Squamous Epith Cells 0 SEEN Urine Bacteria 0 SEEN Urine Mucus 0 SEEN EKG Initial EKG: Attestation: I personally reviewed and interpreted this EKG as follows: Comments: ED attending interpretation shows sinus rhythm with occasional PVCs, LAD, LBBB. No acute ischemic changes Prior EKG tracings: available for review Prior: Unchanged <Dr. Con Xavier, DO - Last Filed: 01/20/23 20:08> [facility] MDM Narrative Medical decision making narrative: Patient was brought in by his after reported abnormal vital signs at his memory care facility. Here he is awake and alert and at neurological baseline. Vital signs are all within normal limits. His exam is benign. Screening labs will be done and if negative I feel he can be discharged back to his facility I have personally performed a face to face assessment of the patient and have reviewed the JAZMÍN Note. I performed a substantive portion of the visit including all aspects of the following. My owens findings include: History is [patient presents to the emergency department from memory unit at request of nursing staff there. was advised that patient was having episodes of fast heart rate and low oxygen levels at times. was told that he was shaky. Patient has no recollection of this. He tells me currently he feels great. He denies any chest pain or shortness of breath. He denies abdominal pain. He has not had recent illness. Does have a prior history of CABG and believes he has had a mitral valve replacement. Patient not currently anticoagulated.] Exam is [HEENT-PERRLA, EOMI. Cranial nerves II through XII grossly intact. TMs clear. Mucous membranes moist. No adenopathy. Cardiovascular-regular rate and rhythm without murmur or ectopy Lungs-clear to auscultation, chest wall stable without crepitus or subcu emphysema Abdomen-normoactive bowel sounds, soft, nontender, no rebound or rigidity, no peritoneal signs. Extremities-intact ?4, normal range of motion, normal pulses, atraumatic] Medical Decison Making [patient clinically looks well. Heart rates been in the 70s and 80s. It is unclear why nursing staff felt he needed to be evaluated as his vital signs of been stable in the emergency department. We will obtain basic labs as well as EKG which showed a sinus rhythm with left bundle branch block and occasional PVCs. Patient CBC with differential was normal. Chemistries unremarkable. Troponin was normal. Urinalysis ordered and pending. As long as his urinalysis is unremarkable and patient feels well I feel he can be discharged back to the custodial.] Other additions or changes: [None] Lab Data Labs: Laboratory Results - last 24 hr 01/20/23 01/20/23 01/20/23 18:54 18:54 19:38 WBC 5.6 RBC 4.54 L Hgb 13.6 Hct 40.3 MCV 88.8 MCH 30.0 MCHC 33.7 RDW Std Deviation 40.7 RDW Coeff of Nisa 12.5 Plt Count 203 MPV 9.8 Immature Gran % (Auto) 0.400 Neut % (Auto) 82.4 H Lymph % (Auto) 12.1 L Scott % (Auto) 4.1 Eos % (Auto) 0.5 Baso % (Auto) 0.5 Absolute Neuts (auto) 4.6 Absolute Lymphs (auto) 0.68 L Nucleated RBC % 0 Sodium 136 Potassium 4.2 Chloride 102 Carbon Dioxide 30.0 Anion Gap 4 L BUN 17 Creatinine 1.10 Estim Creat Clear Calc 55.14 Est GFR (MDRD) Af Amer 82 Est GFR (MDRD) Non-Af 68 BUN/Creatinine Ratio 15.5 Glucose 180 H Calcium 9.2 Troponin I High Sens 8 Urine Color Yellow Urine Clarity Clear Urine pH 8.0 Ur Specific [place] 1.010 Urine Protein 15 H Urine Glucose (UA) Normal Urine Ketones Negative Urine Occult Blood Negative Urine Nitrite Negative Urine Bilirubin Negative Urine Urobilinogen Normal Ur Leukocyte Esterase 25 H Urine RBC 0-5 SEEN Urine WBC 0-5 SEEN Ur Squamous Epith Cells 0 SEEN Urine Bacteria 0 SEEN Urine Mucus 0 SEEN Discharge Plan Triage Chief Complaint: General Illness ED Midlevel Provider: Rochelle Palmer ED Provider: Con Xavier Dx/Rx/DC Orders Clinical Impression: Normal exam Prescriptions: No Action furosemide 40 mg Tablet 40 mg PO DAILY Docusate Sodium Plus 30-100 mg Capsule 1 cap PO DAILY alprazolam 0.5 mg tablet 0.5 mg PO TID Label Comments: take 1 tablet by mouth twice a day glimepiride 4 mg tablet 4 mg PO DAILY Label Comments: take 1 tablet by mouth twice a day benazepril 10 mg tablet 10 mg PO DAILY hydroxyzine pamoate 25 mg capsule 25 mg PO PRN PRN (Reason: Anxiety) bisacodyl 5 mg Tablet 5 mg PO QHS duloxetine 30 mg capsule,delayed release(DR/EC) 60 mg PO BID Label Comments: take 3 capsules by mouth at bedtime aspirin 81 mg Capsule 81 mg PO DAILY magnesium 500 mg Tablet 15 mg PO QHS insulin glargine [Lantus Solostar U-100 Insulin] 100 unit/mL (3 mL) insulin pen 20 unit SUBCUT QHS melatonin 10 mg Tablet 10 mg PO QHS multivitamin Tablet 1 tab PO DAILY trazodone 50 mg tablet 50 mg PO QHS Label Comments: take 1 tablet by mouth at bedtime polyethylene glycol 3350 17 gram powder in packet 17 g PO BID Label Comments: DISSOLVE PACKET (17 GRAMS) IN 120 TO 240 MILLILITERS (4 TO 8 OUNC... (REFER TO PRESCRIPTION NOTES). olanzapine 2.5 mg tablet 2.5 mg PO QHS omeprazole 20 mg capsule,delayed release(DR/EC) 20 mg PO DAILY metoprolol succinate 25 mg tablet extended release 24 hr 25 mg PO DAILY rosuvastatin 20 mg tablet 20 mg PO QHS memantine 10 mg Tablet 10 mg PO BID quetiapine 50 mg tablet 50 mg PO BID Trulicity 0.75 mg/0.5 mL Pen Injector 0.75 mg SUBCUT QWEEK Primary Care Provider: Sofía Cross Referrals: Sofía Cross MD [Primary Care Provider] - Activity Restrictions/Additional Instructions: Blood work and urine tests look normal. Vital signs have been stable here. Patient will be discharged back to facility Disposition Disposition: Home, Self Care
[2023-01-20 19:23] LABS: Absolute Lymphocyte Count 0.68 X10^3/uL (0.83-4.51); Absolute Neutrophil Count 4.6 X10^3/uL (2.0-7.7); Basophil# 0.03 X10^3/uL; Basophil% 0.5 % (0-1); Eosinophil# 0.03 X10^3/uL; Eosinophils% 0.5 % (0-5); Hematocrit 40.3 % (40-54); Hemoglobin 13.6 g/dL (13.0-16.5); Lymphocyte # 0.68 X10^3/ul (0.83-4.51); Lymphocyte % 12.1 % (19-41); Mean Corp Hgb Conc 33.7 g/dL (32-36); Mean Corpuscular Volume 88.8 fL (80-94); Mean Platelet Vol. 9.8 fl (6.2-12.0); Monocyte# 0.23 X10^3/uL; Monocyte% 4.1 % (0-10); NRBC Flagged by Analyzer 0 % (0-5); Neutrophil # 4.64 X10^3/uL (2.7-7.7); Neutrophil % 82.4 % (47-70); Platelet Count 203 K/mm3 (150-450); RBC Distribution Width CV 12.5 % (11.6-14.6); RBC Distribution Width SD 40.7 fl (35.1-43.9); Red Blood Count 4.54 M/mm3 (4.6-6.2); White Blood Count 5.6 K/mm3 (4.4-11.0)
[2023-01-20 19:44] LABS: Anion Gap 4 (5-15); BUN 17 mg/dL (7-18); BUN/Creat Ratio 15.5 RATIO (10-20); Calcium,Total 9.2 mg/dL (8.5-10.1); Chloride 102 mmol/L (98-107); EST Glomerular Filtration Rate 68 mL/min (>60); Est Glom Filt Rate - Afr Amer 82 mL/min (>60); Estimated Creatinine Clearance 55.14 ml/min; Glucose 180 mg/dL (74-106); Potassium 4.2 mmol/L (3.5-5.1); Sodium Level 136 mmol/L (136-145); Troponin-I HS 8 pg/mL (3.0-78.0)
[2023-01-20 19:47] LABS: Bacteria 0 SEEN /hpf (None Seen); Mucous, Urine 0 SEEN /hpf (<or=2+); Squamous Epithelial Cells - UA 0 SEEN /hpf (0-5)
[2023-01-20 20:04] LABS: Color, Urine Yellow (Yellow); Glucose, Dipstick Normal (Normal); Ketone-Dipstick Negative (Negative); Leukocyte Esterase-Dipstick 25 /ul (Negative); Nitrite-Dipstick Negative (Negative); Occult Blood-Urine Negative /ul (Negative); Protein-Dipstick 15 mg/dl (Negative); Urine Bilirubin Dipstick Negative (Negative); Urine Clarity Clear (Clear); Urine Urobilinogen Normal (Normal)
[2023-01-20 20:26] LABS: Red Blood Cells-Urine 0-5 SEEN /hpf (0-5); White Blood Cells 0-5 SEEN /hpf (0-5)
[2023-01-20 20:48] VITALS: BP 156/89; PULSE 87; RESP 17; O2SAT 95
--- NOTE | 2023-01-20 20:51 | ED.RN ---
Attempted to call report to [facility] for nurse to nurse report. Left on hold with no response.
== END 2023-01-20 20:45 | disposition home or self-care (01) ==
PROVIDERS: Physician Assistant; Emergency Provider Emergency Medicine; PCP Family Medicine; Visit Provider Emergency Medicine
DX: Z00.00 Encounter for general adult medical examination without abnormal findings (principal); E11.9 Type 2 diabetes mellitus without complications; Z79.4 Long term (current) use of insulin; I10 Essential (primary) hypertension; I25.10 Atherosclerotic heart disease of native coronary artery without angina pectoris; I25.2 Old myocardial infarction; Z95.1 Presence of aortocoronary bypass graft; Z79.82 Long term (current) use of aspirin; Z79.899 Other long term (current) drug therapy; Z79.84 Long term (current) use of oral hypoglycemic drugs
CPT/HCPCS: 80048; 81001; 84484; 85025; 93005; 99283; A4216

== ENCOUNTER → 2023-02-12 | Outpatient (REF) | payer MEDICARE, MEDICAID, SELFPAY ==
[2023-02-12 08:25] LABS: Anion Gap 2 (5-15); BUN 17 mg/dL (7-18); BUN/Creat Ratio 20.6 RATIO (10-20); Calcium,Total 8.4 mg/dL (8.5-10.1); Chloride 106 mmol/L (98-107); Creatinine, Serum 0.83 mg/dL (0.70-1.30); EST Glomerular Filtration Rate 94 mL/min (>60); Est Glom Filt Rate - Afr Amer 114 mL/min (>60); Glucose 69 mg/dL (74-106); Potassium 4.2 mmol/L (3.5-5.1); Sodium Level 140 mmol/L (136-145)
[2023-02-12 08:41] LABS: Hemoglobin A1c 6.8 % (3.8-5.6)
== END ==
LOC: OLS.BROOKB 05:00
PROVIDERS: PCP Family Medicine; Visit Provider Family Medicine
DX: E11.9 Type 2 diabetes mellitus without complications (principal)
CPT/HCPCS: 36415; 80048; 83036

== ENCOUNTER → 2023-02-28 | Outpatient (REF) | payer MEDICARE, MEDICAID, SELFPAY ==
[2023-02-28 09:05] LABS: Bacteria 0 SEEN /hpf (None Seen); Mucous, Urine 0 SEEN /hpf (<or=2+); Red Blood Cells-Urine 0 SEEN /hpf (0-5); Squamous Epithelial Cells - UA 0 SEEN /hpf (0-5); White Blood Cells 0 SEEN /hpf (0-5)
[2023-02-28 09:49] LABS: Color, Urine Yellow (Yellow); Glucose, Dipstick Normal (Normal); Ketone-Dipstick Negative (Negative); Leukocyte Esterase-Dipstick Negative /ul (Negative); Nitrite-Dipstick Negative (Negative); Occult Blood-Urine Negative /ul (Negative); Protein-Dipstick Negative (Negative); Urine Bilirubin Dipstick Negative (Negative); Urine Clarity Clear (Clear); Urine Urobilinogen Normal (Normal)
== END ==
LOC: OLS.BROOKB 09:04
PROVIDERS: PCP Family Medicine; Visit Provider Family Medicine
DX: N39.0 Urinary tract infection, site not specified (principal)
CPT/HCPCS: 81001; 87086

== ENCOUNTER → 2023-03-01 | Outpatient (REF) | payer MEDICARE, MEDICAID, SELFPAY ==
[2023-03-01 08:49] LABS: Hemoglobin A1c 6.9 % (3.8-5.6)
[2023-03-01 08:51] LABS: AST(SGOT) 38 U/L (15-37); Alanine Aminotransfer ALT/SGPT 40 U/L (16-61); Anion Gap 5 (5-15); BUN 21 mg/dL (7-18); BUN/Creat Ratio 22.6 RATIO (10-20); Calcium,Total 8.1 mg/dL (8.5-10.1); Chloride 107 mmol/L (98-107); Cholesterol 76 mg/dL (200); Creatinine, Serum 0.93 mg/dL (0.70-1.30); EST Glomerular Filtration Rate 83 mL/min (>60); Est Glom Filt Rate - Afr Amer 100 mL/min (>60); Glucose 154 mg/dL (74-106); High Density Lipoprotein 35 mg/dL; Potassium 4.3 mmol/L (3.5-5.1); Sodium Level 138 mmol/L (136-145); Triglycerides 105 mg/dL; Very Low Density Lipoprotein 21 mg/dL (5-40)
== END ==
LOC: OLS.BROOKB 05:00
PROVIDERS: PCP Family Medicine; Visit Provider Family Medicine
DX: E11.9 Type 2 diabetes mellitus without complications (principal); E78.5 Hyperlipidemia, unspecified
CPT/HCPCS: 36415; 80048; 80061; 83036; 84450; 84460

== ENCOUNTER → 2023-04-01 | Outpatient (REF) | payer MEDICARE, MEDICAID, SELFPAY ==
[2023-04-01 08:32] LABS: Hematocrit 36.2 % (40-54); Hemoglobin 11.8 g/dL (13.0-16.5); Mean Corp Hgb Conc 32.6 g/dL (32-36); Mean Corpuscular Hgb 29.9 pg (27.0-32.0); Mean Corpuscular Volume 91.6 fL (80-94); Mean Platelet Vol. 10.7 fl (6.2-12.0); Platelet Count 149 K/mm3 (150-450); RBC Distribution Width CV 12.4 % (11.6-14.6); RBC Distribution Width SD 41.5 fl (35.1-43.9); Red Blood Count 3.95 M/mm3 (4.6-6.2); White Blood Count 5.3 K/mm3 (4.4-11.0)
[2023-04-01 08:49] LABS: ALB/GLOB Ratio 0.9 RATIO (0.9-2.4); AST(SGOT) 45 U/L (15-37); Alanine Aminotransfer ALT/SGPT 60 U/L (16-61); Albumin, Serum 3.1 g/dL (3.2-5.0); Alkaline Phosphatase 55 U/L (45-117); Anion Gap 4 (5-15); BUN 17 mg/dL (7-18); BUN/Creat Ratio 18.1 RATIO (10-20); Calcium,Total 8.3 mg/dL (8.5-10.1); Chloride 107 mmol/L (98-107); Creatinine, Serum 0.94 mg/dL (0.70-1.30); EST Glomerular Filtration Rate 82 mL/min (>60); Est Glom Filt Rate - Afr Amer 99 mL/min (>60); Globulin 3.4 g/dL (2.2-4.2); Glucose 66 mg/dL (74-106); Potassium 4.1 mmol/L (3.5-5.1); Protein, Total 6.5 g/dL (6.4-8.2); Sodium Level 140 mmol/L (136-145)
== END ==
LOC: OLS.BROOKB 08:00
PROVIDERS: PCP Family Medicine; Visit Provider Family Medicine
DX: I95.9 Hypotension, unspecified (principal); E86.0 Dehydration
CPT/HCPCS: 36415; 80053; 85027

== ENCOUNTER 2023-04-13 19:24 | Emergency (ER) | payer MEDICARE, SELFPAY ==
[2023-04-13 19:25] VITALS: BP 109/75; PULSE 77; RESP 14; TEMP 36.6; O2SAT 100
--- NOTE | 2023-04-13 19:41 | EKG12_ITS ---
Test Reason : CP Blood Pressure : / mmHG Vent. Rate : 078 BPM Atrial Rate : 078 BPM P-R Int : 190 ms QRS Dur : 160 ms QT Int : 426 ms P-R-T Axes : 045 -66 080 degrees QTc Int : 485 ms Sinus rhythm with occasional Premature ventricular complexes Left axis deviation Left bundle branch block Abnormal ECG Premature ventricular complexes Confirmed by CHRIS RUDD [id number]), editor magazine STEPAN PATRICIA ([id number]) on 04/16/2023 8:23:41 AM Referred By: MARLY Confirmed By:CHRIS RUDD
--- NOTE | 2023-04-13 19:41 | EDS_ITS ---
HPI History of Present Illness Chief Complaint: Anxiety Informant: patient and spouse/S.O. Narrative Narrative: Patient presents with anxiety and chest pain. Patient has a long history of heart disease and had a 5 vessel bypass about 11 years ago and a valve repair about 2 years ago. He also has a long history of significant anxiety and has had 2 nervous breakdowns in the past. His states that he has been having more anxiety recently. When he gets anxiety he then complains of pain in the chest. He denies getting nausea vomiting diaphoresis or shortness of breath with this. He had an episode earlier and it calm down after he got his Xanax. He is not having any symptoms now. These are nonexertional. His is pretty certain that this is anxiety as she has known him for quite some time and this is a typical pattern. He essentially has no complaint at all at this time. [facility] Medical History (Updated 04/13/23 @ 20:[address] Jerry Frazier MD) Anxiety Coronary artery disease Dementia Depression Diabetes Hypertension Myocardial infarct Home Medications alprazolam 0.5 mg tablet 0.5 mg PO TID 01/20/23 [History Last Taken Unknown] aspirin 81 mg capsule 81 mg PO DAILY 01/20/23 [History Last Taken Unknown] benazepril 10 mg tablet 10 mg PO DAILY 01/20/23 [History Last Taken Unknown] bisacodyl 5 mg tablet 5 mg PO QHS 01/20/23 [History Last Taken Unknown] casanthranol-docusate sodium 30 mg-100 mg capsule 1 cap PO DAILY 01/20/23 [History Last Taken Unknown] dulaglutide 0.75 mg/0.5 mL subcutaneous pen injector (Trulicity) 0.75 mg subcut QWEEK 01/20/23 [History Last Taken Unknown] duloxetine 30 mg capsule,delayed release 60 mg PO BID 01/20/23 [History Last Taken Unknown] furosemide 40 mg tablet 40 mg PO DAILY 01/20/23 [History Last Taken Unknown] glimepiride 4 mg tablet 4 mg PO DAILY 01/20/23 [History Last Taken Unknown] hydroxyzine pamoate 25 mg capsule 25 mg PO PRN PRN Anxiety 01/20/23 [History Last Taken Unknown] insulin glargine 100 unit/mL (3 mL) subcutaneous pen (Lantus Solostar U-100 Insulin) 20 unit subcut QHS 01/20/23 [History Last Taken Unknown] magnesium 500 mg tablet 15 mg PO QHS 01/20/23 [History Last Taken Unknown] melatonin 10 mg tablet 10 mg PO QHS 01/20/23 [History Last Taken Unknown] memantine 10 mg tablet 10 mg PO BID 01/20/23 [History Last Taken Unknown] metoprolol succinate 25 mg tablet,extended release 24 hr 25 mg PO DAILY 01/20/23 [History Last Taken Unknown] multivitamin 1 tab PO DAILY 01/20/23 [History Last Taken Unknown] olanzapine 2.5 mg tablet 2.5 mg PO QHS 01/20/23 [History Last Taken Unknown] omeprazole 20 mg capsule,delayed release 20 mg PO DAILY 01/20/23 [History Last Taken Unknown] polyethylene glycol 3350 17 gram oral powder packet 17 g PO BID 01/20/23 [History Last Taken Unknown] quetiapine 50 mg tablet 50 mg PO BID 01/20/23 [History Last Taken Unknown] rosuvastatin 20 mg tablet 20 mg PO QHS 01/20/23 [History Last Taken Unknown] trazodone 50 mg tablet 50 mg PO QHS 01/20/23 [History Last Taken Unknown] Allergy/AdvReac Type Severity Reaction Status Date / Time donepezil [From Aricept] Allergy Other Verified 04/13/23 19:28 lorazepam [From Ativan] Allergy Other Verified 04/13/23 19:28 Surgical History Heart valve replaced History of bowel resection Hx of CABG Social History household members: spouse Smoking Status: Never smoker substance use type: does not use ROS ROS ED ROS Narrative A complete review of systems was performed and is negative except as documented in the history of present illness. Some specific details below. Constitutional: No recent fevers or chills. No malaise. EYE: No discharge, visual complaints ENT: No difficulty swallowing. No swelling. No pain. No reflux symptoms. No neck pain or discomfort. He did have some soreness of his neck last week but that is after he fell asleep on a couch overnight and it is resolved. CV: See history of present illness. Respiratory: No dyspnea coughing hemoptysis or wheezing. No pain with a deep breath. GI: No abdominal pain. No nausea vomiting diarrhea. No blood in stool. : No frequency dysuria or hematuria. Musculoskeletal: No recent trauma. No pains. No swelling. Skin: No rash. Nondiaphoretic. Neuro: No weakness or numbness. Psychiatry: See history of present illness. He is currently not anxious but he got Xanax before coming here. Endocrine: No polyuria or polydipsia. EXAM Physical Exam Narrative Exam Narrative: CONSTITUTIONAL: Patient is nontoxic in appearance. The patient looks comfortable. Work of breathing looks normal. He is resting quietly in the bed. HEENT: No notable trauma. Mucous membranes moist. Throat looks normal. No thrush. No erythema. EYES: No conjunctival injection. No proptosis. NECK:No JVD. No stridor. CARDIOVASCULAR: Regular rate. Regular rhythm. No notable murmur is heard despite his valvular repair. No JVD. RESPIRATORY: No respiratory distress. Breathing is unlabored. No wheezes. No rhonchi. No rales. No pain with a deep breath. No chest wall tenderness. GASTROINTESTINAL: Not distended. Bowel sounds are normal. No tenderness. No guarding. No rebound. No palpable mass. No bruit is heard. GENITOURINARY: No tenderness over the bladder. No CVA tenderness. MUSCULOSKELETAL: Atraumatic. No significant edema or asymmetry. No cord. NEUROLOGICAL: Patient is alert and appropriate. No focal deficit noted. SKIN: No noted rashes. No diaphoresis. PSYCHIATRIC: Patient is calm at this time. Mood is appropriate. Const Vital Signs: 04/13/23 19:25 04/13/23 19:47 Temperature 97.8 F Temperature Source Temporal Pulse Rate 77 Respiratory Rate 14 Blood Pressure 109/75 Blood Pressure Mean 86 Pulse Ox 100 Oxygen Delivery Method Room Air Room Air MDM MDM MDM Narrative Medical decision making narrative: When up and interpretation the patient's single view AP chest x-ray shows signs consistent with his prior cardiothoracic surgery but no acute process. This is similar to final reading. Patient's CBC shows mild anemia at 11.8 which is the source of his symptoms. Electrolytes show no marked abnormalities. Leukos was up a bit at 272. However he is diabetic. Patient's troponin is negative at 10 despite days of symptomatology. Patient is wondering if this is his anxiety. His is pretty sure. He is comfortable at this time. They will work on his anxiety as an outpatient. I explained this makes it less likely to be his heart although he has known heart disease. If this is worsening he may need to return but at this point I do not think he needs admission. Lab Data Attestation: I reviewed the patient's lab results. Labs: Laboratory Results - last 24 hr 04/13/23 19:45 WBC 6.9 RBC 3.94 L Hgb 11.8 L Hct 35.5 L MCV 90.1 MCH 29.9 MCHC 33.2 RDW Std Deviation 40.7 RDW Coeff of Nisa 12.3 Plt Count 155 MPV 10.1 Immature Gran % (Auto) 0.100 Neut % (Auto) 78.9 H Lymph % (Auto) 12.5 L [place] % (Auto) 7.3 Eos % (Auto) 0.9 Baso % (Auto) 0.3 Absolute Neuts (auto) 5.5 Absolute Lymphs (auto) 0.87 Nucleated RBC % 0 Sodium 135 L Potassium 4.0 Chloride 104 Carbon Dioxide 27.0 Anion Gap 4 L BUN 20 H Creatinine 1.00 Est GFR (MDRD) Af Amer 92 Est GFR (MDRD) Non-Af 76 BUN/Creatinine Ratio 20.1 H Glucose 272 H Calcium 8.5 Troponin I High Sens 10 Radiography Diagnostic Testing: Clinical Impression(s) from Imaging Studies Chest X-Ray 04/13/23 19:52 IMPRESSION: Nonacute x-ray examination of the chest. Electronically Signed: Waldemar Noel ([place]), at 20:02 EDT , EKG Initial EKG: Comments: Plan up and interpretation the patient's EKG shows a normal sinus rhythm. Overall rate is 78. There is an occasional PVC. There is also a left bundle branch block. Sgarbossa is negative. No sign of acute infarct or ischemia. The EKG is similar to 1 from 20 Jan 2023. Discharge Plan Triage Chief Complaint: Anxiety ED Provider: Jerry Frazier Dx/Rx/DC Orders Clinical Impression: History of chest pain, Anxiety, History of coronary artery disease Instructions: ED Anxiety Reaction, ED Chest Pain, Uncertain Cause Prescriptions: No Action furosemide 40 mg Tablet 40 mg PO DAILY Docusate Sodium Plus 30-100 mg Capsule 1 cap PO DAILY alprazolam 0.5 mg tablet 0.5 mg PO TID Patient Comments: take 1 tablet by mouth twice a day glimepiride 4 mg tablet 4 mg PO DAILY Patient Comments: take 1 tablet by mouth twice a day benazepril 10 mg tablet 10 mg PO DAILY hydroxyzine pamoate 25 mg capsule 25 mg PO PRN PRN (Reason: Anxiety) bisacodyl 5 mg Tablet 5 mg PO QHS duloxetine 30 mg capsule,delayed release(DR/EC) 60 mg PO BID Patient Comments: take 3 capsules by mouth at bedtime aspirin 81 mg Capsule 81 mg PO DAILY magnesium 500 mg Tablet 15 mg PO QHS insulin glargine [Lantus Solostar U-100 Insulin] 100 unit/mL (3 mL) insulin pen 20 unit SUBCUT QHS melatonin 10 mg Tablet 10 mg PO QHS multivitamin Tablet 1 tab PO DAILY trazodone 50 mg tablet 50 mg PO QHS Patient Comments: take 1 tablet by mouth at bedtime polyethylene glycol 3350 17 gram powder in packet 17 g PO BID Patient Comments: DISSOLVE PACKET (17 GRAMS) IN 120 TO 240 MILLILITERS (4 TO 8 OUNC... (REFER TO PRESCRIPTION NOTES). olanzapine 2.5 mg tablet 2.5 mg PO QHS omeprazole 20 mg capsule,delayed release(DR/EC) 20 mg PO DAILY metoprolol succinate 25 mg tablet extended release 24 hr 25 mg PO DAILY rosuvastatin 20 mg tablet 20 mg PO QHS memantine 10 mg Tablet 10 mg PO BID quetiapine 50 mg tablet 50 mg PO BID Trulicity 0.75 mg/0.5 mL Pen Injector 0.75 mg SUBCUT QWEEK Primary Care Provider: Sofía Cross Referrals: Sofía Cross MD [Primary Care Provider] - 3-5 Days Disposition Disposition: Home, Self Care
[2023-04-13 19:52] LABS: Absolute Lymphocyte Count 0.87 X10^3/uL (0.83-4.51); Absolute Neutrophil Count 5.5 X10^3/uL (2.0-7.7); Basophil# 0.02 X10^3/uL; Basophil% 0.3 % (0-1); Eosinophil# 0.06 X10^3/uL; Eosinophils% 0.9 % (0-5); Hematocrit 35.5 % (40-54); Hemoglobin 11.8 g/dL (13.0-16.5); Lymphocyte # 0.87 X10^3/ul (0.83-4.51); Lymphocyte % 12.5 % (19-41); Mean Corp Hgb Conc 33.2 g/dL (32-36); Mean Corpuscular Hgb 29.9 pg (27.0-32.0); Mean Corpuscular Volume 90.1 fL (80-94); Mean Platelet Vol. 10.1 fl (6.2-12.0); Monocyte# 0.51 X10^3/uL; Monocyte% 7.3 % (0-10); NRBC Flagged by Analyzer 0 % (0-5); Neutrophil # 5.47 X10^3/uL (2.7-7.7); Neutrophil % 78.9 % (47-70); Platelet Count 155 K/mm3 (150-450); RBC Distribution Width CV 12.3 % (11.6-14.6); RBC Distribution Width SD 40.7 fl (35.1-43.9); Red Blood Count 3.94 M/mm3 (4.6-6.2); White Blood Count 6.9 K/mm3 (4.4-11.0)
--- NOTE | 2023-04-13 19:52 | RAD_ITS ---
STUDY: X-RAY CHEST REASON FOR EXAM: Male, 83 years old. chest pain TECHNIQUE: AP COMPARISON: None. FINDINGS: EKG leads project over the chest. The lungs are clear and expanded. There is no demonstrated pleural abnormality. Normal size heart. Sternal wires and mediastinal surgical clips compatible with prior CABG. TAVR device noted. Normal visualized pulmonary arteries. Normal visualized aortic arch and descending thoracic aorta. Normal visualized thoracic spine. Normal visualized ribs, clavicles, and shoulders. There is no demonstrated abnormality of the visualized soft tissue structures of the upper abdomen. RAD/Chest 1 View (Portable) IMPRESSION: Nonacute x-ray examination of the chest. Electronically Signed: Waldemar Noel ([place]), at 20:02 EDT ,
[2023-04-13 20:09] LABS: Anion Gap 4 (5-15); BUN 20 mg/dL (7-18); BUN/Creat Ratio 20.1 RATIO (10-20); Calcium,Total 8.5 mg/dL (8.5-10.1); Chloride 104 mmol/L (98-107); EST Glomerular Filtration Rate 76 mL/min (>60); Est Glom Filt Rate - Afr Amer 92 mL/min (>60); Glucose 272 mg/dL (74-106); Sodium Level 135 mmol/L (136-145); Troponin-I HS 10 pg/mL (3.0-78.0)
== END 2023-04-13 21:20 | disposition skilled nursing facility (03) ==
PROVIDERS: Emergency Provider Emergency Medicine; PCP Family Medicine; Visit Provider Emergency Medicine
DX: F41.9 Anxiety disorder, unspecified (principal); R07.9 Chest pain, unspecified; I25.10 Atherosclerotic heart disease of native coronary artery without angina pectoris; I25.2 Old myocardial infarction; Z95.1 Presence of aortocoronary bypass graft
CPT/HCPCS: 71045; 80048; 84484; 85025; 93005; 99283; A4216

== ENCOUNTER 2023-04-23 12:32 | Emergency (ER) | payer MEDICARE, MEDICAID, SELFPAY ==
[2023-04-23 12:35] VITALS: BP 132/58; PULSE 57; RESP 18; TEMP 36.6; O2SAT 99; BMI 27.1
[2023-04-23] MEDS: Lidocaine 1% (20 ml mdv) 20 ML Vial INFILT (12:47)
--- NOTE | 2023-04-23 12:51 | EX.ED.GENINJ ---
HPI History of Present Illness Chief Complaint: Laceration Detail of Chief Complaint: Scalp laceration status post fall Informant: patient, EMS and SNF Onset/Context/Timing Onset: Hours Mechanism/Context: Blunt Injury and Fall Location: Occiput parietal area on the left Current Severity: Gone Maximum Severity: Mild Worsened by: Initial injury Relieved by: Not applicable Associated Symptoms Associated Symptoms: Negative for Parasthesias, Weakness, Loss of function, Inability to ambulate, Loss of consciousness or Amnesia Narrative Narrative: Patient is an 83-year-old male who had a mechanical fall. He has a laceration left occipital parietal region. He denies headache. Denies change in vision. Has ringing's ears. He denies neck pain. Denies paresthesia, anesthesia or motor weakness. He denies cardiac respiratory symptoms. Patient is only oriented x1. Patient is at baseline per EMS. Tetanus Immunization: Unknown Recent Illness/Hospitalization: No [facility] Medical History Anxiety Coronary artery disease Dementia Depression Diabetes Hypertension Myocardial infarct Home Medications alprazolam 0.5 mg tablet 0.5 mg PO TID 01/20/23 [History Last Taken Unknown] aspirin 81 mg capsule 81 mg PO DAILY 01/20/23 [History Last Taken Unknown] benazepril 10 mg tablet 10 mg PO DAILY 01/20/23 [History Last Taken Unknown] bisacodyl 5 mg tablet 5 mg PO QHS 01/20/23 [History Last Taken Unknown] casanthranol-docusate sodium 30 mg-100 mg capsule 1 cap PO DAILY 01/20/23 [History Last Taken Unknown] dulaglutide 0.75 mg/0.5 mL subcutaneous pen injector (Trulicity) 0.75 mg subcut QWEEK 01/20/23 [History Last Taken Unknown] duloxetine 30 mg capsule,delayed release 60 mg PO BID 01/20/23 [History Last Taken Unknown] furosemide 40 mg tablet 40 mg PO DAILY 01/20/23 [History Last Taken Unknown] glimepiride 4 mg tablet 4 mg PO DAILY 01/20/23 [History Last Taken Unknown] hydroxyzine pamoate 25 mg capsule 25 mg PO PRN PRN Anxiety 01/20/23 [History Last Taken Unknown] insulin glargine 100 unit/mL (3 mL) subcutaneous pen (Lantus Solostar U-100 Insulin) 20 unit subcut QHS 01/20/23 [History Last Taken Unknown] magnesium 500 mg tablet 15 mg PO QHS 01/20/23 [History Last Taken Unknown] melatonin 10 mg tablet 10 mg PO QHS 01/20/23 [History Last Taken Unknown] memantine 10 mg tablet 10 mg PO BID 01/20/23 [History Last Taken Unknown] metoprolol succinate 25 mg tablet,extended release 24 hr 25 mg PO DAILY 01/20/23 [History Last Taken Unknown] multivitamin 1 tab PO DAILY 01/20/23 [History Last Taken Unknown] olanzapine 2.5 mg tablet 2.5 mg PO QHS 01/20/23 [History Last Taken Unknown] omeprazole 20 mg capsule,delayed release 20 mg PO DAILY 01/20/23 [History Last Taken Unknown] polyethylene glycol 3350 17 gram oral powder packet 17 g PO BID 01/20/23 [History Last Taken Unknown] quetiapine 50 mg tablet 50 mg PO BID 01/20/23 [History Last Taken Unknown] rosuvastatin 20 mg tablet 20 mg PO QHS 01/20/23 [History Last Taken Unknown] trazodone 50 mg tablet 50 mg PO QHS 01/20/23 [History Last Taken Unknown] Allergy/AdvReac Type Severity Reaction Status Date / Time donepezil [From Aricept] Allergy Other Verified 04/23/23 12:40 lorazepam [From Ativan] Allergy Other Verified 04/23/23 12:40 Surgical History Heart valve replaced History of bowel resection Hx of CABG Social History household members: spouse Smoking Status: Never smoker substance use type: does not use ROS ROS ED Constitutional Constitutional ED: Denies chills, fever(s), subjective or sweats Eyes Eyes: Denies blurry vision or change in vision ENT ENT ED: Reports other Details: Denies ringing's ears or decreased hearing. He denies epistaxis ; Denies ear pain, rhinorrhea or sore throat Cardiovascular Cardiovascular: Denies chest pain or palpitations Respiratory/Chest Respiratory/Chest: Denies dyspnea or dyspnea on exertion Gastrointestinal Gastrointestinal: Denies abdominal pain, nausea or vomiting Musculoskeletal Musculoskeletal: Denies back pain or neck pain Integumentary Reports other Details: Scalp laceration Hematologic/Lymphatic Hematologic/Lymphatic: Denies easy bleeding or easy bruising EXAM Physical Exam Const Vital Signs: 04/23/23 12:35 Temperature 97.9 F Temperature Source Temporal Pulse Rate 57 L Respiratory Rate 18 Blood Pressure 132/58 H Blood Pressure Mean 82 Pulse Ox 99 Oxygen Delivery Method Room Air Positive well nourished and well developed General Appearance ED: well developed and NAD HEENT HEENT Narrative: Patient has a 3 cm scalp laceration. There is no palpable oppression. Is no clinical findings of basilar skull fracture. There is no septal deviation hematoma. There is no epistaxis. There is no dental trauma. Eyes PERRL and EOMs intact bilaterally General Eye ED: Yes other Other Details: There is no subconjunctival hemorrhage. There is no nystagmus. There is no scleral's. Neck full ROM Neck Narrative: There is no midline posterior pain to palpation. There is no evidence of trauma. Trachea is midline. Resp normal respiratory effort and clear to auscultation bilaterally Cardio regular rhythm, S1 normal heart sound, S2 normal heart sound and no murmurs Rate: regular rate Back/Spine normal to inspection and no thoracic nor lumbar tenderness General Back: Negative for CVA tenderness Thoracic Spine / Upper Back: Negative for thoracic spinal tenderness Extremity normal to inspection and full ROM Extremity Narrative: There is evidence of old bruising. There is no acute bruising or laceration. Neuro No oriented x3, CN's II-XII intact bilaterally, moves all extremities, no focal motor deficits and no sensory deficits noted Glidden Coma Scale: document GCS findings Spontaneous Obeys Commands Confused 14 Sensorium / Orientation: alert Plantar Reflex: Downgoing: bilateral Skin Skin Narrative: Scalp laceration as previously described PROC Procedures Other Procedures Procedure(s): Patient's wound was prepped draped sterile manner. The wound was anesthetized with 1% lidocaine for local infiltration. A total of 3 cc was infiltrated. The wound was cleansed irrigated. 5 marshall were placed with good approximation and hemostasis. MDM MDM MDM Narrative Medical decision making narrative: With patient having baseline orientation of only person not on anticoagulant no loss of consciousness nonfocal neurologic exam CT of the head was not obtained. Patient's wound was closed using marshall. Patient tolerated procedure. Tetanus is updated prior records were reviewed. This confirms he is not on an anticoagulant. Discharge Plan Triage Chief Complaint: Laceration ED Provider: Jalen Patel Dx/Rx/DC Orders Clinical Impression: Laceration of occipital region of scalp without complication, Dementia, Injury due to fall Instructions: ED Laceration Scalp Stitches or [place] Prescriptions: No Action furosemide 40 mg Tablet 40 mg PO DAILY Docusate Sodium Plus 30-100 mg Capsule 1 cap PO DAILY alprazolam 0.5 mg tablet 0.5 mg PO TID Patient Comments: take 1 tablet by mouth twice a day glimepiride 4 mg tablet 4 mg PO DAILY Patient Comments: take 1 tablet by mouth twice a day benazepril 10 mg tablet 10 mg PO DAILY hydroxyzine pamoate 25 mg capsule 25 mg PO PRN PRN (Reason: Anxiety) bisacodyl 5 mg Tablet 5 mg PO QHS duloxetine 30 mg capsule,delayed release(DR/EC) 60 mg PO BID Patient Comments: take 3 capsules by mouth at bedtime aspirin 81 mg Capsule 81 mg PO DAILY magnesium 500 mg Tablet 15 mg PO QHS insulin glargine [Lantus Solostar U-100 Insulin] 100 unit/mL (3 mL) insulin pen 20 unit SUBCUT QHS melatonin 10 mg Tablet 10 mg PO QHS multivitamin Tablet 1 tab PO DAILY trazodone 50 mg tablet 50 mg PO QHS Patient Comments: take 1 tablet by mouth at bedtime polyethylene glycol 3350 17 gram powder in packet 17 g PO BID Patient Comments: DISSOLVE PACKET (17 GRAMS) IN 120 TO 240 MILLILITERS (4 TO 8 OUNC... (REFER TO PRESCRIPTION NOTES). olanzapine 2.5 mg tablet 2.5 mg PO QHS omeprazole 20 mg capsule,delayed release(DR/EC) 20 mg PO DAILY metoprolol succinate 25 mg tablet extended release 24 hr 25 mg PO DAILY rosuvastatin 20 mg tablet 20 mg PO QHS memantine 10 mg Tablet 10 mg PO BID quetiapine 50 mg tablet 50 mg PO BID Trulicity 0.75 mg/0.5 mL Pen Injector 0.75 mg SUBCUT QWEEK Primary Care Provider: Sofía Cross Referrals: Sofía Cross MD [Primary Care Provider] - 10 Day for suture removal Disposition Disposition: Home, Self Care
[2023-04-23] MEDS: Diphth,Pertuss(Acell),Tet Vac 0.5 ML Vial IM (12:56)
[2023-04-23 12:57] VITALS: BP 128/78; PULSE 64; RESP 14; TEMP 36.3; O2SAT 99
== END 2023-04-23 14:02 | disposition home or self-care (01) ==
LOC: ED 13:06
PROVIDERS: Emergency Provider Emergency Medicine; PCP Family Medicine; Visit Provider Emergency Medicine
DX: S01.01XA Laceration without foreign body of scalp, initial encounter (principal); F03.90 Unspecified dementia, unspecified severity, without behavioral disturbance, psychotic disturbance, mood disturbance, and anxiety; I25.10 Atherosclerotic heart disease of native coronary artery without angina pectoris; I25.2 Old myocardial infarction; Z23 Encounter for immunization; W19.XXXA Unspecified fall, initial encounter; Z95.1 Presence of aortocoronary bypass graft
CPT/HCPCS: 12002; 90471; 90715; 99285

== ENCOUNTER 2023-05-04 16:27 | Emergency (ER) | payer MEDICARE, MEDICAID, SELFPAY ==
[2023-05-04 16:28] VITALS: BP 102/43; PULSE 65; RESP 16; TEMP 36.2; O2SAT 100
--- NOTE | 2023-05-04 16:56 | CT_ITS ---
STUDY: CT BRAIN WITHOUT CONTRAST REASON FOR EXAM: Male, 83 years old. trauma RADIATION DOSAGE (If Supplied By Facility): CTDIvol = ( 44.99 ) mGy, DLP = ( 846.73 ) mGycm TECHNIQUE: Transaxial CT imaging of the brain was performed without administration of intravenous contrast material. Individualized dose optimization techniques were used for this CT. COMPARISON: No relevant priors. FINDINGS: Normal soft tissue structures. Normal calvarium. There is mild cerebral atrophy with widening of the extra-axial spaces and ventricular dilatation. There are areas of decreased attenuation within the white matter tracts of the supratentorial brain, consistent with microvascular disease changes. There are small punctate calcifications of the basal ganglia which are seen in the aging brain as a normal variant. Normal brainstem. Normal cerebellum. There is no intracranial hemorrhage. There are no findings of an acute ischemic infarction. Normal visualized paranasal sinuses. CT/Brain/Head without Contrast IMPRESSION: No acute intracranial hemorrhage or mass effect. Electronically Signed: Waldemar Noel MD ([place]) at 18:24 EDT ,
--- NOTE | 2023-05-04 17:13 | EDS_ITS ---
HPI HPI - Fall History of Present Illness Chief Complaint: Fall Informant: patient and spouse/S.O. Narrative Narrative: 83-year-old male presenting to the emergency room following a fall in which she struck his head. Reported abrasions to the left forehead. No reported loss of consciousness. Per nursing report is not on a blood thinner. He has a history of dementia. states that the patient fell last week and had marshall in his head but does not believe that he was contracted for concussion. She wants him checked for concussion today. She also states that he has been more confused over the past several weeks and needs his ammonia level checked. She does not know why he had a elevated ammonia 1 time in the past but states he was not hospitalized for it was given lactulose as an outpatient to take. She states that he has multiple medical problems that could be related to why he would have an elevated ammonia level. No reported fevers. She also states he has had a rash on his legs. Patient denies neck pain or headache at this time. Patient states that her daughter is a nurse and that he has been hospitalized at multiple facilities needs things checked out patient's notes a rash over the past couple weeks 3 times involving the legs. They seem to come and go.. [facility] Medical History Anxiety Coronary artery disease Dementia Depression Diabetes Hypertension Myocardial infarct Home Medications alprazolam 0.5 mg tablet 0.5 mg PO TID 01/20/23 [History Last Taken Unknown] aspirin 81 mg capsule 81 mg PO DAILY 01/20/23 [History Last Taken Unknown] benazepril 10 mg tablet 10 mg PO DAILY 01/20/23 [History Last Taken Unknown] bisacodyl 5 mg tablet 5 mg PO QHS 01/20/23 [History Last Taken Unknown] casanthranol-docusate sodium 30 mg-100 mg capsule 1 cap PO DAILY 01/20/23 [History Last Taken Unknown] dulaglutide 0.75 mg/0.5 mL subcutaneous pen injector (Trulicity) 0.75 mg subcut QWEEK 01/20/23 [History Last Taken Unknown] duloxetine 30 mg capsule,delayed release 60 mg PO BID 01/20/23 [History Last Taken Unknown] furosemide 40 mg tablet 40 mg PO DAILY 01/20/23 [History Last Taken Unknown] glimepiride 4 mg tablet 4 mg PO DAILY 01/20/23 [History Last Taken Unknown] hydroxyzine pamoate 25 mg capsule 25 mg PO PRN PRN Anxiety 01/20/23 [History Last Taken Unknown] insulin glargine 100 unit/mL (3 mL) subcutaneous pen (Lantus Solostar U-100 Insulin) 20 unit subcut QHS 01/20/23 [History Last Taken Unknown] magnesium 500 mg tablet 15 mg PO QHS 01/20/23 [History Last Taken Unknown] melatonin 10 mg tablet 10 mg PO QHS 01/20/23 [History Last Taken Unknown] memantine 10 mg tablet 10 mg PO BID 01/20/23 [History Last Taken Unknown] metoprolol succinate 25 mg tablet,extended release 24 hr 25 mg PO DAILY 01/20/23 [History Last Taken Unknown] multivitamin 1 tab PO DAILY 01/20/23 [History Last Taken Unknown] olanzapine 2.5 mg tablet 2.5 mg PO QHS 01/20/23 [History Last Taken Unknown] omeprazole 20 mg capsule,delayed release 20 mg PO DAILY 01/20/23 [History Last Taken Unknown] polyethylene glycol 3350 17 gram oral powder packet 17 g PO BID 01/20/23 [History Last Taken Unknown] quetiapine 50 mg tablet 50 mg PO BID 01/20/23 [History Last Taken Unknown] rosuvastatin 20 mg tablet 20 mg PO QHS 01/20/23 [History Last Taken Unknown] trazodone 50 mg tablet 50 mg PO QHS 01/20/23 [History Last Taken Unknown] Allergy/AdvReac Type Severity Reaction Status Date / Time donepezil [From Aricept] Allergy Other Verified 05/04/23 16:28 lorazepam [From Ativan] Allergy Other Verified 05/04/23 16:28 Surgical History Heart valve replaced History of bowel resection Hx of CABG Social History household members: spouse Smoking Status: Never smoker substance use type: does not use ROS ROS ED Constitutional Constitutional ED: Denies chills, fever(s) or weight loss Eyes Eyes: Denies change in vision or diplopia ENT ENT ED: Denies ear pain, rhinorrhea or sore throat Cardiovascular Cardiovascular: Denies chest pain, orthopnea, palpitations or racing heartbeat Respiratory/Chest Respiratory/Chest: Denies cough, dyspnea or orthopnea Gastrointestinal Gastrointestinal: Denies abdominal pain, diarrhea, nausea or vomiting Genitourinary Genitourinary ED: Denies dysuria, hematuria or urinary frequency Musculoskeletal Musculoskeletal: Denies arthralgias or myalgias Integumentary Reports Abrasions, rash and other; Denies abscess Neurologic Neurologic: Denies headache(s) or weakness Psychiatric Psychiatric: Denies anxiety, depression, suicidal ideation or suicidal thoughts Endocrine Endocrinology: Denies polydipsia, polyphagia or polyuria Allergic/Immunologic Allergic/Immunologic ED: Denies mouth swelling, tongue swelling or urticaria EXAM Physical Exam Const Vital Signs: 05/04/23 16:28 05/04/23 16:54 Temperature 97.2 F L Temperature Source Temporal Pulse Rate 65 Respiratory Rate 16 Respiratory Effort Normal Blood Pressure 102/43 L Blood Pressure Mean 62 Pulse Ox 100 Oxygen Delivery Method Room Air Room Air Positive well nourished and well developed General Appearance ED: well developed HEENT Reports normocephalic and moist mucous membranes HEENT Narrative: Superficial abrasions to the left forehead left periorbital region. No palpable bony depressions. There is a healing laceration on the vertex of the scalp. Patient has no tenderness to the neck. Eyes PERRL and EOMs intact bilaterally Neck full ROM, no lymphadenopathy, supple and no JVD Resp normal respiratory effort and clear to auscultation bilaterally Cardio regular rate, regular rhythm and no murmurs GI normal to inspection, nondistended, normoactive bowel sounds and non-tender Palpation: soft Back/Spine no CVA tenderness and normal ROM Extremity normal to inspection General Extremety ED: Negative for edema General Extremity: Negative for edema Neuro CN's II-XII intact bilaterally Sensorium / Orientation: alert and oriented to person; Negative for oriented to place, oriented to time or lethargic Motor Exam: strength 5/5 throughout Psych mental status grossly normal Mood & Affect: Negative for depressed or tearful Skin no rashes or lesions noted and no wounds MDM MDM MDM Narrative Medical decision making narrative: Basic blood work obtained showed a hemoglobin 9.9. He is known to have some anemia. Creatinine 1 with a BUN of 21. His ammonia level is 42. I do not think that this is necessarily significant. I do not have anything really to compare it to but he is awake he is talkative he seems at baseline. Chest x-ray on my interpretation shows no acute process. CT of the brain is negative for hemorrhage or fracture. The patient took a while to provide a urine specimen delaying his time in the emergency department but this is negative. I examined the patient without pants on. There is no rash on legs at this current time. His shows me the rash in his legs but I cannot explain why he has had a rash that comes and goes 3 times over the past several weeks. Patient to be discharged back to care facility Lab Data Attestation: I reviewed the patient's lab results. Labs: Laboratory Results - last 24 hr 05/04/23 05/04/23 05/04/23 17:15 17:34 19:19 WBC 5.3 RBC 3.29 L Hgb 9.9 L Hct 30.2 L MCV 91.8 MCH 30.1 MCHC 32.8 RDW Std Deviation 42.4 RDW Coeff of Nisa 12.7 Plt Count 155 MPV 9.8 Immature Gran % (Auto) 0.200 Neut % (Auto) 75.4 H Lymph % (Auto) 14.5 L [place] % (Auto) 7.4 Eos % (Auto) 1.9 Baso % (Auto) 0.6 Absolute Neuts (auto) 4.0 Absolute Lymphs (auto) 0.77 L Nucleated RBC % 0 Sodium 139 Potassium 4.4 Chloride 107 Carbon Dioxide 30.0 Anion Gap 2 L BUN 21 H Creatinine 1.00 Est GFR (MDRD) Af Amer 92 Est GFR (MDRD) Non-Af 76 BUN/Creatinine Ratio 21.1 H Glucose 151 H Calcium 8.1 L Total Bilirubin 0.30 AST 26 ALT 38 Alkaline Phosphatase 59 Ammonia 42.0 H Total Protein 6.5 Albumin 3.0 L Globulin 3.5 Albumin/Globulin Ratio 0.9 Urine Color Yellow Urine Clarity Clear Urine pH 6.0 Ur Specific [place] 1.015 Urine Protein Negative Urine Glucose (UA) Normal Urine Ketones Negative Urine Occult Blood Negative Urine Nitrite Negative Urine Bilirubin Negative Urine Urobilinogen Normal Ur Leukocyte Esterase Negative Urine RBC 0 SEEN Urine WBC 0 SEEN Ur Squamous Epith Cells 0 SEEN Urine Bacteria 0 SEEN Urine Mucus 0 SEEN Radiography Diagnostic Testing: Clinical Impression(s) from Imaging Studies Brain CT 05/04/23 16:56 IMPRESSION: No acute intracranial hemorrhage or mass effect. Electronically Signed: Waldemar Noel MD ([place]) at 18:24 EDT , Chest X-Ray 05/04/23 18:06 IMPRESSION: Nonacute portable x-ray examination of the chest. Electronically Signed: Waldemar Noel MD ([place]) at 18:21 EDT , Discharge Plan Triage Chief Complaint: Fall ED Provider: Rodrigue Reaves Dx/Rx/DC Orders Clinical Impression: Dementia, Contusion of face, Abrasion of face, Fall Instructions: ED Abrasion, ED Head Injury (Adult) Prescriptions: No Action furosemide 40 mg Tablet 40 mg PO DAILY Docusate Sodium Plus 30-100 mg Capsule 1 cap PO DAILY alprazolam 0.5 mg tablet 0.5 mg PO TID Patient Comments: take 1 tablet by mouth twice a day glimepiride 4 mg tablet 4 mg PO DAILY Patient Comments: take 1 tablet by mouth twice a day benazepril 10 mg tablet 10 mg PO DAILY hydroxyzine pamoate 25 mg capsule 25 mg PO PRN PRN (Reason: Anxiety) bisacodyl 5 mg Tablet 5 mg PO QHS duloxetine 30 mg capsule,delayed release(DR/EC) 60 mg PO BID Patient Comments: take 3 capsules by mouth at bedtime aspirin 81 mg Capsule 81 mg PO DAILY magnesium 500 mg Tablet 15 mg PO QHS insulin glargine [Lantus Solostar U-100 Insulin] 100 unit/mL (3 mL) insulin pen 20 unit SUBCUT QHS melatonin 10 mg Tablet 10 mg PO QHS multivitamin Tablet 1 tab PO DAILY trazodone 50 mg tablet 50 mg PO QHS Patient Comments: take 1 tablet by mouth at bedtime polyethylene glycol 3350 17 gram powder in packet 17 g PO BID Patient Comments: DISSOLVE PACKET (17 GRAMS) IN 120 TO 240 MILLILITERS (4 TO 8 OUNC... (REFER TO PRESCRIPTION NOTES). olanzapine 2.5 mg tablet 2.5 mg PO QHS omeprazole 20 mg capsule,delayed release(DR/EC) 20 mg PO DAILY metoprolol succinate 25 mg tablet extended release 24 hr 25 mg PO DAILY rosuvastatin 20 mg tablet 20 mg PO QHS memantine 10 mg Tablet 10 mg PO BID quetiapine 50 mg tablet 50 mg PO BID Trulicity 0.75 mg/0.5 mL Pen Injector 0.75 mg SUBCUT QWEEK Primary Care Provider: Sofía Cross Referrals: Sofía Cross MD [Primary Care Provider] - 1 Week Disposition Disposition: Home, Self Care
[2023-05-04 17:41] LABS: Absolute Lymphocyte Count 0.77 X10^3/uL (0.83-4.51); Basophil# 0.03 X10^3/uL; Basophil% 0.6 % (0-1); Eosinophils% 1.9 % (0-5); Hematocrit 30.2 % (40-54); Hemoglobin 9.9 g/dL (13.0-16.5); Lymphocyte # 0.77 X10^3/ul (0.83-4.51); Lymphocyte % 14.5 % (19-41); Mean Corp Hgb Conc 32.8 g/dL (32-36); Mean Corpuscular Hgb 30.1 pg (27.0-32.0); Mean Corpuscular Volume 91.8 fL (80-94); Mean Platelet Vol. 9.8 fl (6.2-12.0); Monocyte# 0.39 X10^3/uL; Monocyte% 7.4 % (0-10); NRBC Flagged by Analyzer 0 % (0-5); Neutrophil % 75.4 % (47-70); Platelet Count 155 K/mm3 (150-450); RBC Distribution Width CV 12.7 % (11.6-14.6); RBC Distribution Width SD 42.4 fl (35.1-43.9); Red Blood Count 3.29 M/mm3 (4.6-6.2); White Blood Count 5.3 K/mm3 (4.4-11.0)
[2023-05-04 18:01] LABS: ALB/GLOB Ratio 0.9 RATIO (0.9-2.4); AST(SGOT) 26 U/L (15-37); Alanine Aminotransfer ALT/SGPT 38 U/L (16-61); Alkaline Phosphatase 59 U/L (45-117); Anion Gap 2 (5-15); BUN 21 mg/dL (7-18); BUN/Creat Ratio 21.1 RATIO (10-20); Calcium,Total 8.1 mg/dL (8.5-10.1); Chloride 107 mmol/L (98-107); EST Glomerular Filtration Rate 76 mL/min (>60); Est Glom Filt Rate - Afr Amer 92 mL/min (>60); Globulin 3.5 g/dL (2.2-4.2); Glucose 151 mg/dL (74-106); Potassium 4.4 mmol/L (3.5-5.1); Protein, Total 6.5 g/dL (6.4-8.2); Sodium Level 139 mmol/L (136-145)
--- NOTE | 2023-05-04 18:06 | RAD_ITS ---
STUDY: X-RAY CHEST REASON FOR EXAM: Male, 83 years old. confusion TECHNIQUE: AP COMPARISON: None. FINDINGS: The lungs are clear and expanded. There is no demonstrated pleural abnormality. Normal size heart. Sternal wires and aortic valve prosthesis. Normal visualized pulmonary arteries. Normal visualized aortic arch and descending thoracic aorta. Normal visualized thoracic spine. Normal visualized ribs, clavicles, and shoulders. There is no demonstrated abnormality of the visualized soft tissue structures of the upper abdomen. RAD/Chest 1 View (Portable) IMPRESSION: Nonacute portable x-ray examination of the chest. Electronically Signed: Waldemar Noel MD ([place]) at 18:21 EDT ,
[2023-05-04 19:32] LABS: Bacteria 0 SEEN /hpf (None Seen); Mucous, Urine 0 SEEN /hpf (<or=2+); Red Blood Cells-Urine 0 SEEN /hpf (0-5); Squamous Epithelial Cells - UA 0 SEEN /hpf (0-5); White Blood Cells 0 SEEN /hpf (0-5)
[2023-05-04 19:39] LABS: Color, Urine Yellow (Yellow); Glucose, Dipstick Normal (Normal); Ketone-Dipstick Negative (Negative); Leukocyte Esterase-Dipstick Negative /ul (Negative); Nitrite-Dipstick Negative (Negative); Occult Blood-Urine Negative /ul (Negative); Protein-Dipstick Negative (Negative); Specific Gravity, Urine 1.015 (1.002-1.030); Urine Bilirubin Dipstick Negative (Negative); Urine Clarity Clear (Clear); Urine Urobilinogen Normal (Normal)
[2023-05-04 21:01] VITALS: PULSE 60; RESP 18; O2SAT 98
== END 2023-05-04 21:02 | disposition home or self-care (01) ==
PROVIDERS: Emergency Provider Emergency Medicine; PCP Family Medicine; Visit Provider Emergency Medicine
DX: F03.90 Unspecified dementia, unspecified severity, without behavioral disturbance, psychotic disturbance, mood disturbance, and anxiety (principal); S00.81XA Abrasion of other part of head, initial encounter; I25.10 Atherosclerotic heart disease of native coronary artery without angina pectoris; W19.XXXA Unspecified fall, initial encounter
CPT/HCPCS: 36415; 70450; 71045; 80053; 81001; 82140; 85025; 99283; A4216

== ENCOUNTER → 2023-05-09 | Outpatient (REF) | payer MEDICARE, MEDICAID, SELFPAY ==
[2023-05-10 08:42] LABS: Mucous, Urine 0 SEEN /hpf (<or=2+); Squamous Epithelial Cells - UA 0 SEEN /hpf (0-5)
[2023-05-10 08:54] LABS: Color, Urine Yellow (Yellow); Glucose, Dipstick Normal (Normal); Ketone-Dipstick Negative (Negative); Leukocyte Esterase-Dipstick 500 /ul (Negative); Nitrite-Dipstick Negative (Negative); Occult Blood-Urine 150 /ul (Negative); Protein-Dipstick 15 mg/dl (Negative); Specific Gravity, Urine 1.015 (1.002-1.030); Urine Bilirubin Dipstick Negative (Negative); Urine Clarity Clear (Clear); Urine Urobilinogen Normal (Normal)
[2023-05-10 09:08] LABS: Bacteria 2+ /hpf (None Seen); Red Blood Cells-Urine 10-25 SEEN /hpf (0-5); White Blood Cells 25-50 SEEN /hpf (0-5)
== END ==
LOC: OLS.BROOKB 08:42
PROVIDERS: PCP Family Medicine; Visit Provider Family Medicine
DX: R41.82 Altered mental status, unspecified (principal)
CPT/HCPCS: 81001; 87077; 87086; 87088; 87186

== ENCOUNTER 2023-05-17 14:25 | Emergency (ER) | payer MEDICARE, MEDICAID, SELFPAY ==
[2023-05-17 14:26] VITALS: BP 156/60; PULSE 82; RESP 18; TEMP 37; O2SAT 96; BMI 27.9
--- NOTE | 2023-05-17 14:49 | CT_ITS ---
INDICATION: trauma EXAMINATION: CT BRAIN - CT Head or Brain W/O Contrast Injection TECHNIQUE: Multiple axial images were obtained of the head without intravenous contrast. A radiation dose optimization technique was used for this scan. IV Contrast dosage and agent: None. RADIATION DOSAGE (If Supplied By Facility): CTDIvol = ( 44.99 ) mGy, DLP = ( 796.11 ) mGycm COMPARISON: May 04, 2023 FINDINGS: BRAIN PARENCHYMA: No intra- or extra-axial hemorrhage. There are patchy areas of low attenuation within the white matter of the cerebral hemispheres, a nonspecific finding most commonly reflecting small vessel ischemia. No evidence of acute infarct. No intracranial mass or mass effect. There is preservation of the baez/white matter interface. Posterior fossa structures are unremarkable. CSF SPACES: Appropriate for age. No hydrocephalus. Basal cisterns are patent. CALVARIUM, SKULL BASE, PARANASAL SINUSES AND MASTOID AIR CELLS: Clear. No discrete lytic or blastic abnormalities. ORBITS: Both globes, extraocular muscles, optic nerves and retrobulbar fat appear unremarkable. ASPECTS Score for Acute Strokes: 10 CT/Brain/Head without Contrast IMPRESSION: Small vessel ischemia. Electronically Signed: Sandhya Jackson MD at 16:25 EDT ,
--- NOTE | 2023-05-17 14:50 | ED.VIS.FALL ---
HPI HPI - Fall History of Present Illness Chief Complaint: Fall Informant: patient, spouse/S.O. and EMS Narrative Narrative: Patient assisted living with a history of falls had another unwitnessed fall, sustaining a head injury. He has no complaints right now. He is at baseline according to his who states he has Lewy body dementia and history of falls, for which she was taken off of aspirin and no longer is on that or any other antiplatelet or anticoagulant medications. Patient denies any recent illness. [facility] Medical History (Updated 05/17/23 @ 16:[address] Tiago Fitzgerald MD) Anxiety Coronary artery disease Depression Diabetes Hypertension Lewy body dementia Myocardial infarct Home Medications alprazolam 0.5 mg tablet 0.5 mg PO TID 01/20/23 [History Last Taken Unknown] aspirin 81 mg capsule 81 mg PO DAILY 01/20/23 [History Last Taken Unknown] benazepril 10 mg tablet 10 mg PO DAILY 01/20/23 [History Last Taken Unknown] bisacodyl 5 mg tablet 5 mg PO QHS 01/20/23 [History Last Taken Unknown] casanthranol-docusate sodium 30 mg-100 mg capsule 1 cap PO DAILY 01/20/23 [History Last Taken Unknown] dulaglutide 0.75 mg/0.5 mL subcutaneous pen injector (Trulicity) 0.75 mg subcut QWEEK 01/20/23 [History Last Taken Unknown] duloxetine 30 mg capsule,delayed release 60 mg PO BID 01/20/23 [History Last Taken Unknown] furosemide 40 mg tablet 40 mg PO DAILY 01/20/23 [History Last Taken Unknown] glimepiride 4 mg tablet 4 mg PO DAILY 01/20/23 [History Last Taken Unknown] hydroxyzine pamoate 25 mg capsule 25 mg PO PRN PRN Anxiety 01/20/23 [History Last Taken Unknown] insulin glargine 100 unit/mL (3 mL) subcutaneous pen (Lantus Solostar U-100 Insulin) 20 unit subcut QHS 01/20/23 [History Last Taken Unknown] magnesium 500 mg tablet 15 mg PO QHS 01/20/23 [History Last Taken Unknown] melatonin 10 mg tablet 10 mg PO QHS 01/20/23 [History Last Taken Unknown] memantine 10 mg tablet 10 mg PO BID 01/20/23 [History Last Taken Unknown] metoprolol succinate 25 mg tablet,extended release 24 hr 25 mg PO DAILY 01/20/23 [History Last Taken Unknown] multivitamin 1 tab PO DAILY 01/20/23 [History Last Taken Unknown] olanzapine 2.5 mg tablet 2.5 mg PO QHS 01/20/23 [History Last Taken Unknown] omeprazole 20 mg capsule,delayed release 20 mg PO DAILY 01/20/23 [History Last Taken Unknown] polyethylene glycol 3350 17 gram oral powder packet 17 g PO BID 01/20/23 [History Last Taken Unknown] quetiapine 50 mg tablet 50 mg PO BID 01/20/23 [History Last Taken Unknown] rosuvastatin 20 mg tablet 20 mg PO QHS 01/20/23 [History Last Taken Unknown] trazodone 50 mg tablet 50 mg PO QHS 01/20/23 [History Last Taken Unknown] Allergy/AdvReac Type Severity Reaction Status Date / Time donepezil [From Aricept] Allergy Other Verified 05/17/23 14:32 lorazepam [From Ativan] Allergy Other Verified 05/17/23 14:32 Surgical History Heart valve replaced History of bowel resection Hx of CABG Social History household members: spouse Smoking Status: Never smoker substance use type: does not use ROS ROS ED Constitutional Constitutional ED: Denies chills or fever(s) Eyes Eyes: Denies change in vision or diplopia ENT ENT ED: Denies ear pain, epistaxis, facial pain or rhinorrhea Cardiovascular Cardiovascular: Denies chest pain or palpitations Respiratory/Chest Respiratory/Chest: Denies cough or dyspnea Gastrointestinal Gastrointestinal: Denies abdominal pain, diarrhea, melena, nausea or vomiting Genitourinary Genitourinary ED: Denies dysuria or hematuria Musculoskeletal Musculoskeletal: Denies back pain, extremity pain or neck pain Integumentary Reports laceration; Denies abscess, Abrasions or rash Neurologic Neurologic: Reports confusion and other Details: Baseline mental status per . ; Denies headache(s), paresthesias or weakness EXAM Physical Exam Const Vital Signs: 05/17/23 14:26 05/17/23 14:32 Temperature 98.6 F Temperature Source Oral Pulse Rate 82 Respiratory Rate 18 Respiratory Effort Normal Non-Labored Respiratory Depth Normal Respiratory Pattern Normal Blood Pressure 156/60 H Blood Pressure Mean 92 Pulse Ox 96 Oxygen Delivery Method Room Air Room Air Positive well nourished and well developed General Appearance ED: well developed and NAD HEENT Reports TM's clear and nasal mucous membranes and turbinates normal HEENT Narrative: Tender hematoma without crepitance or depression with overlying laceration right parietal scalp. No other signs of HEENT trauma. trauma Face and Sinus: Negative for facial tenderness Tympanic Membrane ED: Yes TM's clear Eyes PERRL and EOMs intact bilaterally Visual Acuity: other Other Details: no entrapment or pain with extraocular movements Neck full ROM and supple General: Negative for tenderness Chest Wall inspection of chest normal and palpation of chest normal Chest: symmetrical chest wall rise; Negative for crepitus or tenderness Resp normal respiratory effort and clear to auscultation bilaterally Percussion: other equal BS bilat Cardio no murmurs Rate: regular rate Rhythm: regular rhythm GI normal to inspection, nondistended, normoactive bowel sounds, soft to palpation and non-tender Back/Spine normal ROM Cervical Spine: Negative for cervical spine tenderness Thoracic Spine / Upper Back: Negative for thoracic spinal tenderness Lumbar Spine / Lower Back: Negative for lumbar spinal tenderness Extremity normal to inspection and full ROM General Extremety ED: Negative for tenderness Neuro CN's II-XII intact bilaterally, moves all extremities, no focal motor deficits and no sensory deficits noted Princess Coma Scale: document GCS findings Spontaneous Obeys Commands Oriented 15 Sensorium / Orientation: awake, alert, oriented to person, oriented to place and other At baseline per at bedside Psych mental status grossly normal and thought process normal Skin no wounds Skin Narrative: 6 cm U-shaped laceration right parietal scalp full-thickness clean appearing no pulsatile/arterial bleeding. Lesions: no lesions Rashes: no rashes Trauma: laceration flap MDM MDM MDM Narrative Medical decision making narrative: CT of the head was obtained in order to rule out intracranial injury, I reviewed the images and report which I agree with, negative for anything acute. Laceration was repaired see the procedure note. Patient has not been ill or having any other symptoms or change in his mental status, I do not think he needs further work-up right now. confirms that this is his baseline and he has a history of being unsteady and having falls. Radiography Diagnostic Testing: Clinical Impression(s) from Imaging Studies Brain CT 05/17/23 14:49 IMPRESSION: Small vessel ischemia. Electronically Signed: Sandhya Jackson MD at 16:25 EDT , Procedures Lacerations R scalp: Length: 6 cm Depth: Skin Shape: Flap Prep: Sterile Conditions and Chlorhexadine (scrubbed) Laceration repair: Lidocaine with epi (4cc, 1%), Local and Skin sutures (abdoul) Number of Sutures/[place]: 7 Discharge Plan Triage Chief Complaint: Fall ED Provider: Tiago Fitzgerald Dx/Rx/DC Orders Clinical Impression: Accidental fall, Laceration of scalp Instructions: ED Laceration Scalp Stitches or Abdoul Prescriptions: No Action furosemide 40 mg Tablet 40 mg PO DAILY Docusate Sodium Plus 30-100 mg Capsule 1 cap PO DAILY alprazolam 0.5 mg tablet 0.5 mg PO TID Patient Comments: take 1 tablet by mouth twice a day glimepiride 4 mg tablet 4 mg PO DAILY Patient Comments: take 1 tablet by mouth twice a day benazepril 10 mg tablet 10 mg PO DAILY hydroxyzine pamoate 25 mg capsule 25 mg PO PRN PRN (Reason: Anxiety) bisacodyl 5 mg Tablet 5 mg PO QHS duloxetine 30 mg capsule,delayed release(DR/EC) 60 mg PO BID Patient Comments: take 3 capsules by mouth at bedtime aspirin 81 mg Capsule 81 mg PO DAILY magnesium 500 mg Tablet 15 mg PO QHS insulin glargine [Lantus Solostar U-100 Insulin] 100 unit/mL (3 mL) insulin pen 20 unit SUBCUT QHS melatonin 10 mg Tablet 10 mg PO QHS multivitamin Tablet 1 tab PO DAILY trazodone 50 mg tablet 50 mg PO QHS Patient Comments: take 1 tablet by mouth at bedtime polyethylene glycol 3350 17 gram powder in packet 17 g PO BID Patient Comments: DISSOLVE PACKET (17 GRAMS) IN 120 TO 240 MILLILITERS (4 TO 8 OUNC... (REFER TO PRESCRIPTION NOTES). olanzapine 2.5 mg tablet 2.5 mg PO QHS omeprazole 20 mg capsule,delayed release(DR/EC) 20 mg PO DAILY metoprolol succinate 25 mg tablet extended release 24 hr 25 mg PO DAILY rosuvastatin 20 mg tablet 20 mg PO QHS memantine 10 mg Tablet 10 mg PO BID quetiapine 50 mg tablet 50 mg PO BID Trulicity 0.75 mg/0.5 mL Pen Injector 0.75 mg SUBCUT QWEEK Primary Care Provider: Sofía Cross Referrals: Sofía Cross MD [Primary Care Provider] - 7 Days for suture removal Disposition Disposition: Home, Self Care
[2023-05-17] MEDS: Lidocaine 1% /Epi 1:100 (20ml) 20 ML Vial INFILT (16:04)
[2023-05-17 16:31] VITALS: BP 148/56; PULSE 82; RESP 18
--- NOTE | 2023-05-17 17:48 | NURSING ---
medicated with xanax 0.50 mg computer did not allow me to chart this.
[2023-05-17] MEDS: ALPRAZolam 0.5 MG Tablet PO (18:00)
== END 2023-05-17 18:43 | disposition home or self-care (01) ==
PROVIDERS: Emergency Provider Emergency Medicine; PCP Family Medicine; Visit Provider Emergency Medicine
DX: S01.01XA Laceration without foreign body of scalp, initial encounter (principal); I25.10 Atherosclerotic heart disease of native coronary artery without angina pectoris; I25.2 Old myocardial infarction; W19.XXXA Unspecified fall, initial encounter; Z95.1 Presence of aortocoronary bypass graft
CPT/HCPCS: 12002; 70450; 99285